=== PATIENT | female | born 1960 | race Caucasian/White ===

== ENCOUNTER → 2016-07-10 | Day surgery (SDC) | payer OTHER ==
[~2016-07-10] MED LIST: ALPRAZolam 0.25 MG TAB ONE
--- NOTE | 2016-07-10 14:45 | USB ---
Discontinued right breast biopsy history: Abnormal breast ultrasound Correlation of previous right breast ultrasound 13 December 2015, 17 May 2016 Real-time scanning, ultrasound images obtained from the 1:00, 3:00 as well as 10:00 positions of the right breast were performed. Fibrocystic changes are noted at all sites. No solid or cystic masses evident. IMPRESSION: No target for biopsy, no percutaneous core biopsy performed at this time. Benign breast u ltrasound, BI-RADS 2. Follow-up mammogram recommended back on schedule.
== END ==
LOC: RADUSWWP 11:54
PROVIDERS: ATTEND Surgery
DX: R92.8 Other abnormal and inconclusive findings on diagnostic imaging of breast (principal); Z53.8 Procedure and treatment not carried out for other reasons

== ENCOUNTER → 2016-08-22 | Outpatient (CLI) | payer OTHER ==
--- NOTE | 2016-08-22 21:56 | WWHP ---
DATE OF SERVICE: 08/22/2016 CHIEF COMPLAINT: Patient is here for her routine gynecologic exam. HPI: This is a 56-year-old G0 with an LMP of 2009. The patient states it has been about 15 years since her last pelvic exam. She states she has had some urinary leakage. She states that there are times when she cannot get to the bathroom quick enough following strong urinary urgency. She is otherwise without complaints. PAST MEDICAL HISTORY: Seizure disorder and chronic hypertension. Dr. Miranda has been her primary care physician but she states she will be changing since Dr. Miranda is leaving the area. MEDICATIONS: 1. Dilantin 100 mg t.i.d. 2. Atenolol 25 mg daily. ALLERGIES: No known drug allergies. PAST SURGICAL HISTORY: [place] teeth removed in the past, colonoscopy 2013. She did have thyroid biopsy, which was benign in the past. 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 SOCIAL HISTORY: She admits to smoking about 1 pack of cigarettes per day and has about 2 alcoholic drinks per day. She states she previously was a much heavier drinker in the past. She admits to using marijuana, but denies any other drug use. She is from her and has been for many years. She lives with a man that she calls her roommate but they are not sexually active. She is not sexually active and is not seeing anybody else at this time. She is considered disabled. FAMILY HISTORY: Father had lung cancer. Paternal cousin had breast cancer. Mother had heart disease. REVIEW OF SYSTEMS: Weight has been stable. She states for many years, she has been trying to gain weight. RESPIRATORY: She can get short of breath with exertion. She denies cardiac problems. GI: She states she does not have a very good appetite, denies any other GI problems. PHYSICAL EXAM: Blood pressure 123/81. Height 5 feet 6 inches. Weight 103 pounds. Temperature 97.6, pulse 112. This is a well-developed thin white female who is alert and oriented x3 in no acute distress. The patient seems to have some generalized muscle atrophy. HEENT is within normal limits. NECK: Supple with thyroid enlargement on the left side which is soft and about 2 times normal size on the left side only. She states this was biopsied in the past. CHEST AND LUNGS: Clear to auscultation. HEART: Mild tachycardia. Breasts are without mass or discharge. Axillary exam is negative for adenopathy. BACK: Negative for CVA tenderness. ABDOMEN: Soft, nontender, without palpable masses. PELVIC EXAM: External genitalia reveals mild atrophy without lesions. Cervix is deviated to the patient's right, in the vagina. Cervix and vagina without lesions. There is no unusual vaginal discharge. There is no evidence of prolapse. There is no cervical motion tenderness. The uterus seems very firm and irregular, approximately 10 week size. This is nontender and seems posterior in the pelvis. This feels like this may represent a multifibroid uterus with several fibroids measuring 4 to 5 cm each. There are no other pelvic masses noted. I cannot be sure if this is the uterus or ovaries or some other type of mass. Rectovaginal exam confirms that the pelvic mass that I am palpating is not stool within the rectum. There are no rectal masses. There is moderate amount of soft stool in the rectum and there was also some evidence of some rectal stool incontinence. Stool was negative for occult blood. EXTREMITIES: Nontender. IMPRESSION: 1. A 55-year-old menopausal female with a firm irregular pelvic mass. Differential diagnosis will include multifibroid uterus, ovarian neoplasm, stool higher in the gastrointestinal tract than the rectum or other nongynecologic pelvic mass. 2. Occasional urinary urge incontinence without any significant bladder findings at this time. 3. Left thyromegaly, which was apparently biopsied in the past and was benign according to the patient. 4. Mild tachycardia. PLAN: 1. Pap smear was performed. 2. Self-breast examination was discussed. 3. The patient will be due for a diagnostic bilateral mammogram in January 21 and an order slip was given to patient for this. 4. The patient will undergo a pelvic ultrasound today to further evaluate the pelvic mass. 5. I have stressed the importance of getting a primary care physician since she states she is in between primary care doctors. She understands that she has multiple conditions including the unilateral thyromegaly that should be watched and possibly further evaluated. 6. She will also return in one year and p.r.n.
== END ==
LOC: WWCWWP 10:33
PROVIDERS: ATTEND Obstetrics & Gynecology

== ENCOUNTER → 2016-09-14 | Outpatient (CLI) | payer OTHER ==
--- NOTE | 2016-09-14 14:48 | US ---
EXAMINATION TYPE: US pelvic complete DATE OF EXAM: 09/14/2016 1:56 PM COMPARISON: NONE CLINICAL HISTORY: R19.00 PELVIC MASS. TECHNIQUE: Transabdominal (TA) Date of LMP: Patient has been post menopausal for at least 7 years EXAM MEASUREMENTS: Uterus: 10.2 x 5.2 x 7.2 cm Endometrial Stripe: 1.3 cm Right Ovary: 1.9 x 1.2 x 1.5 cm Left Ovary: not visualized cm TECHNOLOGIST IMPRESSION: 1. Uterus: Multiple calcified shadowing fibroids largest 2 measuring 2.9 x 3.4 x 3.6cm, and 2.8 x 2.9 x 2.7cm 2. Endometrium: measures thick for post menopausal patient 3. Right Ovary: wnl 4. Left Ovary: not visualized 5. Bilateral Adnexa: extensive peristalsing bowel in left adnexa 6. Posterior cul-de-sac: wnl IMPRESSION: 1. Fibroid uterus. 2. Endometrial stripe is upper limits of normal in size.
== END | disposition home or self-care (01) ==
LOC: RADUSWWP 08-22 11:49
PROVIDERS: ATTEND Obstetrics & Gynecology
DX: D25.9 Leiomyoma of uterus, unspecified (principal)
CPT/HCPCS: 76856

== ENCOUNTER → 2017-02-19 | Outpatient (CLI) | payer OTHER ==
--- NOTE | 2017-02-20 09:15 | MM ---
Reason for exam: additional evaluation requested from prior study. Last mammogram was performed 1 year and 2 months ago. History: Patient is postmenopausal and is nulliparous. US discontinued breast bx RT of the right breast, July 10, 2016. Physical Findings: Nurse did not find any significant physical abnormalities on exam. MG Diagnostic Mammo w CAD CARMEN Bilateral CC and MLO view(s) were taken. Prior study comparison: December 13, 2015, bilateral MG 3d diag mammo w/cad CARMEN. December 02, 2014, mammogram, performed at [facility]. The breast tissue is heterogeneously dense. This may lower the sensitivity of mammography. Finding: There is a new heterogeneous, grouped of calcifications in the upper quadrant, central position of the right breast for which a tissue biopsy is recommended. New finding since December 13, 2015 and December 02, 2014. These results were verbally communicated with the patient and result sheet given to the patient on 02/19/17. ASSESSMENT: Suspicious, BI-RAD 4 RECOMMENDATION: Stereotactic core biopsy of the right breast. Called Dr. Beaver with mammographic findings and has scheduled an appointment for the patient for 02/26/17 at 11:[address] Britton. PRELIMINARY REPORT CALLED AND FAXED TO DR. BRITTON ON 02/20/17 /TP.
== END | disposition home or self-care (01) ==
LOC: RADMAMWWP 09-14 13:15
PROVIDERS: ATTEND Obstetrics & Gynecology
DX: R92.8 Other abnormal and inconclusive findings on diagnostic imaging of breast (principal)

== ENCOUNTER → 2017-05-15 | Outpatient (CLI) | payer OTHER ==
--- NOTE | 2017-05-15 13:34 | US ---
EXAMINATION TYPE: US pelvic complete DATE OF EXAM: 05/15/2017 COMPARISON: NONE CLINICAL HISTORY: D25.9,UTERINE LEIOMYOMA. Fibroid uterus TECHNIQUE: Transabdominal (TA) Date of LMP: 7-8 years ago EXAM MEASUREMENTS: Uterus: 10.7 x 6.0 x 7.6 cm Endometrial Stripe: 0.7 cm Right Ovary: unable to visualize Left Ovary: unable to visualize 1. Uterus: Anteverted multiple shadowing calcified fibroids with largest = 3.4 x 3.6 x 3.3cm 2. Endometrium: difficult to visualize due to heterogenicity of uterus 3. Right Ovary: unable to visualize 4. Left Ovary: unable to visualize 5. Bilateral Adnexa: wnl 6. Posterior cul-de-sac: wnl IMPRESSION: Redemonstration of a fibroid uterus with largest leiomyoma measuring 3.6 cm, unchanged fr om the prior. Endometrium is again difficult to visualize and measures approximately 7 mm.
== END | disposition home or self-care (01) ==
LOC: RADUSWWP 11:53
PROVIDERS: ATTEND Obstetrics & Gynecology
DX: D25.9 Leiomyoma of uterus, unspecified (principal)
CPT/HCPCS: 76856

== ENCOUNTER → 2017-05-25 | Outpatient (CLI) | payer OTHER ==
[2017-05-25 11:17] LABS: Blood Urea Nitrogen 8 mg/dL (7-17); Non-African American GFR(MDRD) >60 (>60 ml/min/1.73 sqM)
--- NOTE | 2017-05-25 12:43 | MR ---
EXAMINATION TYPE: MR brain wo/w con DATE OF EXAM: 05/25/2017 COMPARISON: NONE HISTORY: Seizures, memory difficulties, recent diagnosis breast ca TECHNIQUE: Multiplanar, multisequence images of the brain and brainstem is performed without and with IV contras t, utilizing 4.5 mL intravenous Gadavist . FINDINGS: Diffusion weighted images demonstrate no evidence of a recent infarct or other diffusion ab normality. There is no extra-axial fluid collection. Few punctate T2/FLAIR hyperintense foci are see n within the subcortical and periventricular white matter preferentially within the frontal lobes. Me sial temporal lobes are symmetric and unremarkable. The ventricular system and cisternal spaces are n ormal in size and appearance. The brain volume is age appropriate. Midline structures demonstrate normal morphology. The craniocervical junction appears within normal limits. Post contrast images demonstrate no abnormal enhancement. The dural venous sinuses appear pa tent. Scant mucosal thickening is present within the ethmoid air cells. The remaining visualized sinu ses are clear and the globes are intact. IMPRESSION: 1. No evidence of intracranial metastasis or acute CVA. 2. Mild burden periventricular and subcortical nonspecific white matter, likely on the basis of chron ic microangiopathy.
== END | disposition home or self-care (01) ==
LOC: RADMRIMAIN 10:40
PROVIDERS: ATTEND Nurse Practitioner Acute Care
DX: R90.89 Other abnormal findings on diagnostic imaging of central nervous system (principal); R41.3 Other amnesia; G40.909 Epilepsy, unspecified, not intractable, without status epilepticus
CPT/HCPCS: 82565; 84520; 70553; 36415; A9581

== ENCOUNTER 2020-12-22 10:40 | Inpatient (IN) | payer OTHER ==
[2020-12-22] MEDS ORDERED: SODIUM CHLORIDE 0.9% 500 ML 500 ML IV STA ×2 (11:18→12:40)
[2020-12-22] MEDS ORDERED: ONDANSETRON 4 MG/2 ML VIAL IVP STA (11:18)
--- NOTE | 2020-12-22 11:41 | ED ---
Weakness HPI <BarryDao - Last Filed: 12/22/20 15:20> - General Source: EMS Mode of arrival: EMS Limitations: no limitations <Keena Joaquin - Last Filed: 12/22/20 22:07> - General Chief complaint: Weakness Stated complaint: Weakness Time Seen by Provider: 12/22/20 11:08 - History of Present Illness Initial comments: Patient is a 60-year-old female with history of end-stage renal disease, liver disease, presenting to the emergency department via EMS with complaints of generalized weakness, chronic abdominal pain and inability to care for herself at home. Patient is a poor historian and is not providing a lot of information. I do have paperwork from a recent hospital stay at [facility], where she was discharged on 12/07/2020, and recommended hospice however patient is refusing hospice care. She has a dialysis catheter in the left femoral, unaware of the last time she had dialysis. She denies any chest pain or shortness of breath, she has not been eating. She is complaining of abdominal pain but states she's had this for months. Patient seems to be severely ma lnutrious, weak. She does complain of some nausea, no vomiting. There is nothing further at this time, no family to help with history. Tachycardia upon arrival, 116, rest of vitals stable. (Keena Joaquin) - Related Data Home Medications Medication Instructions Recorded Confirmed Anastrozole 1 mg PO DAILY 12/22/20 12/22/20 Ascorbic Acid [Vitamin C with Diana 1,000 mg PO DAILY 12/22/20 12/22/20 Hips] Aspirin 325 mg PO DAILY 12/22/20 12/22/20 Cholecalciferol [Vitamin D3 (25 25 mcg PO DAILY 12/22/20 12/22/20 Mcg = 1000 Iu)] Cyanocobalamin (Vitamin B-12) 1,000 mcg PO DAILY 12/22/20 12/22/20 [Vitamin B-12] Folic Acid 1 mg PO DAILY 12/22/20 12/22/20 HYDROcodone/APAP 7.5-325MG [[place] 1 tab PO TID 12/22/20 12/22/20 7.5-325] Loperamide HCl [Loperamide] 2 mg PO QID 12/22/20 12/22/20 Magnesium Gluconate [Magonate] 500 mg PO DAILY 12/22/20 12/22/20 Midodrine HCl [ProAmatine] 10 mg PO TID 12/22/20 12/22/20 Pantoprazole [Protonix] 40 mg PO DAILY 12/22/20 12/22/20 Potassium Chloride 10 meq PO BID 12/22/20 12/22/20 Allergies Allergy/AdvReac Type Severity Reaction Status Date / Time iodine Allergy Rash/Hives Verified 12/22/20 13:18 Iodine and Iodide Containing Allergy Rash/Hives Verified 12/22/20 13:18 Produc lactose Allergy Diarrhea. Verified 12/22/20 13:18 ABD PAIN. metal Allergy Rash/Hives Uncoded 12/22/20 13:18 Review of Systems ROS Other: All systems not noted in ROS Statement are negative. <Dao Reddy - Last Filed: 12/22/20 15:20> ROS Other: All systems not noted in ROS Statement are negative. <Keena Joaquin - Last Filed: 12/22/20 22:07> ROS Statement: Those systems with pertinent positive or pertinent negative responses have been documented in the HPI. Past Medical History Past Medical History: Chest Pain / Angina, Hypertension, Seizure Disorder, Sleep Apnea/CPAP/BIPAP Additional Past Medical History / Comment(s): Rt breast itching since bx,rt breast CA, Uses CPAP, LAST SEIZURE IN 2014,varicose veins,hx colon polyp,pos h.pylori History of Any Multi-Drug Resistant Organisms: None Reported Past Surgical History: No Surgical Hx Reported Additional Past Surgical History / Comment(s): rt breast bx,ALL TEETH EXTRACTED,colonoscopy Past Anesthesia/Blood Transfusion Reactions: No Reported Reaction, Motion Sickness Additional Past Anesthesia/Blood Transfusion Reaction / Comment(s): NO General Anesthesia Past Psychological History: Anxiety Smoking Status: Current every day smoker Past Alcohol Use History: Occasional Past Drug Use History: None Reported <Keena Joaquin - Last Filed: 12/22/20 22:07> General Exam Limitations: no limitations <Keena Joaquin Last Filed: 12/22/20 22:07> - General Exam Comments Initial Comments: GENERAL: Patient is severely cachectic, jaundiced, weak appearing HEAD: Atraumatic, normocephalic. EYES: Pupils equal round and reactive to light, extraocular movements intact, sclera anicteric, conjunctiva are normal. Eyelids were unremarkable. ENT: TMs normal, nares patent, oropharynx clear without exudates. Moist mucous membranes. NECK: Normal range of motion, supple without lymphadenopathy or JVD. LUNGS: Unlabored respirations. Breath sounds clear to auscultation bilaterally and equal. No wheezes rales or rhonchi. HEART: Tachycardia rate and rhythm without murmurs, rubs or gallops. ABDOMEN: Abdomen is distended, painful, normoactive bowel sounds. : Deferred MUSCULOSKELETAL: Severe muscle wasting, bilateral ankles have pitting edema, neurovascular intact, decreased strength in all 4 extremities, range of motion seems to be within normal limits. No clubbing or cyanosis. NEUROLOGICAL: Patient is alert and oriented x 2-3, I feel patient just doesn't want to answer questions at times. Motor and sensory are also intact. Cranial nerves II through XII grossly intact. Symmetrical smile. Normal speech, unable to ambulate. PSYCH: Normal mood, normal affect. SKIN: Warm, Dry, normal turgor, no rashes. Patient is jaundiced in color, bruising noted to the left forearm, no pain in this location. Patient has left femoral dialysis catheter present, mild erythema, mild drainage. (Keena Joaquin) Course <Dao Reddy - Last Filed: 12/22/20 15:20> <Keena Joaquin - Last Filed: 12/22/20 22:07> Vital Signs 12/22/20 12/22/20 12/22/20 10:47 12:29 13:23 Temperature 97.6 F Pulse Rate 116 H 105 H 122 H Respiratory 18 18 16 Rate Blood Pressure 123/53 82/54 90/45 O2 Sat by Pulse 96 96 96 Oximetry 12/22/20 12/22/20 12/22/20 14:30 15:00 16:27 Temperature Pulse Rate 105 H 104 H 116 H Respiratory 16 16 16 Rate Blood Pressure 86/58 107/68 84/63 O2 Sat by Pulse 96 95 95 Oximetry - Reevaluation(s) Reevaluation #1: 12/22/20 15:20 Patient was evaluated patient is refusing further care with respect to dialysis or treatment patient will be no code 12/22/20 15:20 The patient does appear to have decision-making capacity (Dao Reddy) 12/22/[address] Santos about possible ICU placement however patient is refusing dialysis at this time. She will be changed to a no code. Patient will be admitted for hospice care. No ICU. (Keena Joaquin) EKG Findings - EKG Comments: EKG Findings:: Sinus tach, low voltage QRS, nonspecific T-wave abnormality, no signs of acute ischemic process. Ventricular rate 111, AZ interval 172, QT 344. <Keena Joaquin - Last Filed: 12/22/20 22:07> Medical Decision Making - Lab Data Result diagrams: 12/22/20 11:56 12/22/20 11:56 <Dao Reddy - Last Filed: 12/22/20 15:20> - Lab Data Result diagrams: 12/22/20 11:56 12/22/20 17:40 <Keena Joaquin - Last Filed: 12/22/20 22:07> - Medical Decision Making Patient is a 60-year-old female, with history of end-stage renal and liver disease, presenting via EMS with complaints of generalized weakness, unable to care for herself at home. She is a poor historian, recent admission to [facility] reveals she was discharged on 12/07/2020 with recommendation to hospice however she has been refusing. She did arrive tachycardia, rest of vital stable. Patient is severely cachectic, weak, complaining of abdominal pain and nausea. Labs showed leukocytosis of 20.4, hemoglobin is 7.6, potassium was high at 7.2, creatinine is 8.35, BUN is 132 with a glucose of 36. Lactic acid is elevated at 6.4. Troponin is negative, BNP is 88,000. I discussed case in detail with Dr. Reddy. Patient will be admitted for possible dialysis. I did discuss case with Dr. Tsai who accepts admission. We did start antibiotics, hyperkalemia protocol. I discussed case with Dr. Villalpando , who agreed to do dialysis. Then I discussed with patient the urgent need for dialysis however patient is adamantly refusing dialysis. I explained that she will without dialysis, patient states "I don't care, she understands." Patient will be DO NOT RESUSCITATE. She will be admitted with consult to hospice care. Case discussed in detail with Dr. Reddy. (Keena Joaquin) - Lab Data Lab Results 12/22/20 12/22/20 12/22/20 Range/Units 11:56 11:56 11:56 WBC 20.4 H (3.8-10.6) k/uL RBC 2.43 L (3.80-5.40) m/uL Hgb 7.6 L (11.4-16.0) gm/dL Hct 25.0 L (34.0-46.0) % MCV 102.7 H (80.0-100.0) fL MCH 31.4 (25.0-35.0) pg MCHC 30.6 L (31.0-37.0) g/dL RDW 15.6 H (11.5-15.5) % Plt Count 382 (150-450) k/uL MPV 12.4 Neutrophils % (Manual) 88 % Band Neuts % (Manual) 10 % Lymphocytes % (Manual) 1 % Monocytes % (Manual) 1 % Neutrophils # (Manual) 19.90 H (1.3-7.7) k/uL Lymphocytes # (Manual) 0.20 L (1.0-4.8) k/uL Monocytes # (Manual) 0.20 (0-1.0) k/uL Nucleated RBCs 0 (0-0) /100 WBC Manual Slide Review Performed Hypochromasia Marked Macrocytosis Slight Target Cells Present PT 12.7 H (9.0-12.0) sec INR 1.2 H (<1.2) APTT 26.0 (22.0-30.0) sec Sodium 143 (137-145) mmol/L Potassium 7.2 H* (3.5-5.1) mmol/L Chloride 110 H (98-107) mmol/L Carbon Dioxide 12 L (22-30) mmol/L Anion Gap 21 mmol/L BUN 132 H* (7-17) mg/dL Creatinine 8.35 H* (0.52-1.04) mg/dL Est GFR (CKD-EPI)AfAm 6 (>60 ml/min/1.73 sqM) Est GFR (CKD-EPI)NonAf 5 (>60 ml/min/1.73 sqM) Glucose 36 L* (74-99) mg/dL Lactic Ac Sepsis Rflx Plasma Lactic Acid Nitesh (0.7-2.0) mmol/L Calcium 10.0 (8.4-10.2) mg/dL Magnesium 2.1 (1.6-2.3) mg/dL Total Bilirubin 0.6 (0.2-1.3) mg/dL AST 28 (14-36) U/L ALT 20 (4-34) U/L Alkaline Phosphatase 233 H (38-126) U/L Creatine Kinase 58 (30-135) U/L Troponin I (0.000-0.034) ng/mL NT-Pro-B Natriuret Pep pg/mL Total Protein 5.7 L (6.3-8.2) g/dL Albumin 2.6 L (3.5-5.0) g/dL 12/22/20 12/22/20 12/22/20 Range/Units 11:56 11:56 11:56 WBC (3.8-10.6) k/uL RBC (3.80-5.40) m/uL Hgb (11.4-16.0) gm/dL Hct (34.0-46.0) % MCV (80.0-100.0) fL MCH (25.0-35.0) pg MCHC (31.0-37.0) g/dL RDW (11.5-15.5) % Plt Count (150-450) k/uL MPV Neutrophils % (Manual) % Band Neuts % (Manual) % Lymphocytes % (Manual) % Monocytes % (Manual) % Neutrophils # (Manual) (1.3-7.7) k/uL Lymphocytes # (Manual) (1.0-4.8) k/uL Monocytes # (Manual) (0-1.0) k/uL Nucleated RBCs (0-0) /100 WBC Manual Slide Review Hypochromasia Macrocytosis Target Cells PT (9.0-12.0) sec INR (<1.2) APTT (22.0-30.0) sec Sodium (137-145) mmol/L Potassium (3.5-5.1) mmol/L Chloride (98-107) mmol/L Carbon Dioxide (22-30) mmol/L Anion Gap mmol/L BUN (7-17) mg/dL Creatinine (0.52-1.04) mg/dL Est GFR (CKD-EPI)AfAm (>60 ml/min/1.73 sqM) Est GFR (CKD-EPI)NonAf (>60 ml/min/1.73 sqM) Glucose (74-99) mg/dL Lactic Ac Sepsis Rflx Plasma Lactic Acid Nitesh 6.4 H* (0.7-2.0) mmol/L Calcium (8.4-10.2) mg/dL Magnesium (1.6-2.3) mg/dL Total Bilirubin (0.2-1.3) mg/dL AST (14-36) U/L ALT (4-34) U/L Alkaline Phosphatase (38-126) U/L Creatine Kinase (30-135) U/L Troponin I <0.012 (0.000-0.034) ng/mL NT-Pro-B Natriuret Pep 69986 pg/mL Total Protein (6.3-8.2) g/dL Albumin (3.5-5.0) g/dL 12/22/20 Range/Units 12:28 WBC (3.8-10.6) k/uL RBC (3.80-5.40) m/uL Hgb (11.4-16.0) gm/dL Hct (34.0-46.0) % MCV (80.0-100.0) fL MCH (25.0-35.0) pg MCHC (31.0-37.0) g/dL RDW (11.5-15.5) % Plt Count (150-450) k/uL MPV Neutrophils % (Manual) % Band Neuts % (Manual) % Lymphocytes % (Manual) % Monocytes % (Manual) % Neutrophils # (Manual) (1.3-7.7) k/uL Lymphocytes # (Manual) (1.0-4.8) k/uL Monocytes # (Manual) (0-1.0) k/uL Nucleated RBCs (0-0) /100 WBC Manual Slide Review Hypochromasia Macrocytosis Target Cells PT (9.0-12.0) sec INR (<1.2) APTT (22.0-30.0) sec Sodium (137-145) mmol/L Potassium (3.5-5.1) mmol/L Chloride (98-107) mmol/L Carbon Dioxide (22-30) mmol/L Anion Gap mmol/L BUN (7-17) mg/dL Creatinine (0.52-1.04) mg/dL Est GFR (CKD-EPI)AfAm (>60 ml/min/1.73 sqM) Est GFR (CKD-EPI)NonAf (>60 ml/min/1.73 sqM) Glucose (74-99) mg/dL Lactic Ac Sepsis Rflx Y Plasma Lactic Acid Nitesh (0.7-2.0) mmol/L Calcium (8.4-10.2) mg/dL Magnesium (1.6-2.3) mg/dL Total Bilirubin (0.2-1.3) mg/dL AST (14-36) U/L ALT (4-34) U/L Alkaline Phosphatase (38-126) U/L Creatine Kinase (30-135) U/L Troponin I (0.000-0.034) ng/mL NT-Pro-B Natriuret Pep pg/mL Total Protein (6.3-8.2) g/dL Albumin (3.5-5.0) g/dL Critical Care Time Critical Care Time: Yes Total Critical Care Time: 37 (Patient with acute renal failure, hyperkalemia, hypotensive, patient refusing dialysis, will be admitted for hospice care) <Keena Joaquin - Last Filed: 12/22/20 22:07> Disposition <Dao Reddy - Last Filed: 12/22/20 15:20> Decision Date: 12/22/20 Decision Time: 13:24 <Keena Joaquin - Last Filed: 12/22/20 22:07> Clinical Impression: Renal failure, Hyperkalemia, Lactic acidosis, Malnutrition, Hypoglycemia Disposition: ADMITTED IP TO THIS [facility] Condition: Poor
[2020-12-22 12:24] LABS: INR 1.2 (<1.2); Prothrombin Time 12.7 sec (9.0-12.0)
--- NOTE | 2020-12-22 12:24 | CT ---
EXAMINATION TYPE: CT abdomen pelvis wo con DATE OF EXAM: 12/22/2020 COMPARISON: None HISTORY: Ascites, weakness, abdominal pain CT DLP: 352.1 mGycm Automated exposure control for dose reduction was used. TECHNIQUE: Helical acquisition of images from the lung bases through the pelvis. FINDINGS: Left femoral central venous catheter is present, tip is near the confluence of the common i liac veins LUNG BASES: No significant abnormality is appreciated. AORTA: Dense atherosclerotic calcification present in the aortoiliac distribution. Coronary artery c alcifications noted LIVER/GB: No significant abnormality is appreciated. PANCREAS: No significant abnormality is seen. SPLEEN: No significant abnormality is seen. ADRENALS: No significant abnormality is seen. KIDNEYS: No significant abnormality is seen. REPRODUCTIVE ORGANS: Multiple calcified masses are present within the pelvis, lobular soft tissue is present. Left ovarian mass is suspected with a cystic component, solid component overall measuring 4 cm in AP dimension by 2.2 cm transverse dimension by 3 cm in cephalad to caudal dimension URINARY BLADDER: No significant abnormality is seen. BOWEL: Diverticular changes associated with the sigmoid colon. Fluid-filled loops of small bowel not ed, bowel wall thickening may be related to hypoproteinemia, ascites FREE AIR: No Free Air is visible. ASCITES: Large amount of ascites. PELVIC ADENOPATHY: None visualized. RETROPERITONEAL ADENOPATHY: No Retroperitoneal Adenopathy visible. OSSEOUS STRUCTURES: No significant abnormality is seen. IMPRESSION: LARGE AMOUNT OF ASCITES. INDETERMINATE PELVIC MASSES WITH ASSOCIATED CALCIFICATION MAY BE RELATED TO OVARIAN FIBROIDS, LEFT OVARIAN CYSTIC MASS IS NOTED
[2020-12-22 12:26] LABS: Albumin 2.6 g/dL (3.5-5.0); Magnesium 2.1 mg/dL (1.6-2.3); Total Bilirubin 0.6 mg/dL (0.2-1.3); Total Protein 5.7 g/dL (6.3-8.2)
[2020-12-22 12:31] LABS: HGB 7.6 gm/dL (11.4-16.0); Hypochromasia Marked; MCH 31.4 pg (25.0-35.0); MCHC 30.6 g/dL (31.0-37.0); MCV 102.7 fL (80.0-100.0); Macrocytosis Slight; Mean Platelet Volume 12.4; Platelet Count 382 k/uL (150-450); RBC 2.43 m/uL (3.80-5.40); RDW 15.6 % (11.5-15.5); WBC 20.4 k/uL (3.8-10.6)
[2020-12-22 12:40] LABS: Potassium 7.2 mmol/L (3.5-5.1)
[2020-12-22] MEDS ORDERED: DEXTROSE 50% SYRINGE 50 ML IVP STA ×2 (12:43→19:00)
[2020-12-22] MEDS ORDERED: MIDODRINE 5 MG TAB PO STA (13:14)
[2020-12-22 13:15] LABS: Glucose,Whole Blood 129 mg/dL (75-99)
--- NOTE | 2020-12-22 13:17 | XR ---
EXAMINATION TYPE: XR chest 2V DATE OF EXAM: 12/22/2020 COMPARISON: NONE TECHNIQUE: PA and lateral views submitted. HISTORY: Weakness FINDINGS: The lungs are clear and there is no pneumothorax, pleural effusion, or focal pneumonia. Hyperinflat ion suggestive of COPD. Surgical clips overlying the right chest. Vascular calcifications noted. No o vert failure. Heart size normal. Degenerative change of the spine. Correlate for COPD. IMPRESSION: 1. No acute process.
[2020-12-22] MEDS ORDERED: NALOXONE 0.4 MG/ML 1 ML VIAL IV PRN (13:19)
[2020-12-22 13:33] LABS: Band Neutrophils % 10 %; Neutrophils % (M) 88 %; Nucleated Red Blood Cells 0 /100 WBC (0-0); Target Cells Present; Total Cells Counted 100
[2020-12-22] MEDS: SODIUM CHLORIDE 0.9% 1,000 ML IV SCH ×2 (14:07→23:46)
[2020-12-22] MEDS ORDERED: SODIUM BICARB 8.4% 50 ML SYR (1 MEQ/ML) IV ONE (15:17)
[2020-12-22] MEDS ORDERED: ALBUTEROL NEB (CONC) 2.5 MG/0.5 ML INHALATION ONE (15:17)
[2020-12-22] MEDS ORDERED: DEXTROSE 50% SYRINGE 50 ML IVP ONE (15:17)
[2020-12-22] MEDS ORDERED: SODIUM POLYSTYRENE SULFONATE 15 GM/60 ML BOTTLE PO ONE (15:17)
[2020-12-22] MEDS ORDERED: INSULIN REGULAR 100 UNIT/ML VIAL (IV) IV ONE (15:17)
[2020-12-22] MEDS ORDERED: VANCOMYCIN IV PER PHARMACY 1 EACH MISC MISCELLANE PRN (15:18)
[2020-12-22] MEDS ORDERED: CALCIUM GLUCONATE 1 GM in SODIUM CHLORIDE 0.9% 100 ML IVPB ONE (15:45)
[2020-12-22] MEDS ORDERED: VANCOMYCIN 1,000 MG in SODIUM CHLORIDE 0.9% 250 ML IVPB ONE (15:45)
[2020-12-22 16:30] LABS: Glucose,Whole Blood 128 mg/dL (75-99)
--- NOTE | 2020-12-22 17:56 | P.HPIM ---
History of Present Illness H&P Date: 12/22/20 Chief Complaint: Weakness This is a 60-year-old pleasant lady, with multiple significant comorbidities including end-stage renal and liver disease, requiring hemodialysis, ascites with cirrhosis abdominal pain, shortness of breath, cachectic shock, failure to thrive, anorexia, significant weight loss, was last admitted at [facility], approximately 2 weeks ago, and was supposed to be on hospice. She refused hospice care, has difficulty of caring for herself, she was hypotensive when seen in the emergency room, she also has a left dialysis catheter femoral area for which she wants it removed. She thinks that this might giving her problems, when inspected, there is some redness surrounding the area, there is no surgical dressing in place, and there is some yellowish green discharge from the circumference of the catheter area. She was tachycardic on admission, and hypotensive, systolic in the 80s, Emergency room, potassium was 7.2, creatinine was 8.35, alkaline phosphatase 233, WBC count 20.4, lactic acid is elevated, coronavirus PCR negative. Patient was evaluated by myself also after admission to the emergency room, and discussed the hospice option, eyes she does have critical hyperkalemia, with significant hypotension. We've started her on ranitidine, and given her some fluid boluses, there is also ascites noted on examination. X-rays shows no acute disease, has COPD changes, no overt failure EKG, sinus tachycardia 111, nonspecific ST-T wave changes, no peak T waves I discussed this with Dr. mc for the left femoral catheter, for the dialysis, consult with Dr. Rodrigez, patient will be started on cefepime renal dose, vancomycin, consult with Dr. Mc, however his flying to [place] in the morning. He recommends getting Dr. Moore involved first, prior to discontinuing this catheter, for access to dialysis for the critical hyperkalemia blood cultures done, Review of Systems Constitutional: Reports as per HPI, Reports anorexia, Reports fatigue, Reports malaise, Reports poor appetite, Reports weakness, Reports weight loss Ears, nose, mouth and throat: Reports as per HPI, Denies ant. neck pain, Denies bleeding gums, Denies dental pain, Denies dysphagia, Denies epistaxis, Denies headache, Denies hoarseness, Denies mouth pain, Denies nasal congestion, Denies nasal discharge, Denies neck fullness/pressure, Denies neck lump, Denies nose pain, Denies odynophagia, Denies post-nasal drip, Denies sinus pain, Denies sinus pressure, Denies swelling in mouth, Denies swelling in throat, Denies sore throat, Denies vertigo, Denies voice changes Cardiovascular: Reports as per HPI, Reports decreased exercise tolerance, Reports dyspnea on exertion, Reports edema, Reports leg edema, Reports lightheadedness, Reports orthopnea, Reports shortness of breath, Denies chest pain, Denies claudication, Denies irregular heart beat, Denies palpitations, Denies syncope Respiratory: Reports as per HPI, Reports dyspnea, Denies congestion, Denies cough, Denies cough with sputum, Denies excessive sputum, Denies hemoptysis, D enies home oxygen, Denies pain, Denies pain on inspiration, Denies pleurisy, Denies respiratory infections, Denies sleep apnea, Denies snoring, Denies wheezing Gastrointestinal: Reports as per HPI, Reports abdominal pain, Reports early satiety, Reports indigestion, Reports loss of appetite Genitourinary: Reports as per HPI Menstruation: Reports as per HPI Musculoskeletal: Reports as per HPI, Denies arm numbness/tingling, Denies atrophy, Denies fractures, Denies frequent falls, Denies gait dysfunction, Denies hot joints, Denies leg numbness/tingling, Denies limitation of motion, Denies loss of height, Denies low back pain, Denies morning stiffness, Denies muscle cramps, Denies muscle weakness, Denies myalgias, Denies neck pain, Denies neck stiffness, Denies prior amputations, Denies redness of joints, Denies shooting arm pain, Denies shooting leg pain Integumentary: Reports as per HPI Neurological: Reports as per HPI, Reports confusion, Reports gait dysfunction, Reports memory loss, Reports weakness Psychiatric: Reports as per HPI Endocrine: Reports as per HPI, Denies cold intolerance, Denies deepening of the voice, Denies excessive sweating, Denies excessive thirst, Denies fatigue, Denies flushing, Denies heat intolerance, Denies high blood sugars, Denies increase in ring/shoe/hat size, Denies low blood sugars, Denies nocturia, Denies palpitations, Denies polydipsia, Denies polyphagia, Denies polyuria, Denies proptosis, Denies recent glucocorticoid use, Denies thyroid mass, Denies weight change Hematologic/Lymphatic: Reports as per HPI Allergic/Immunologic: Reports as per HPI, Denies allergic rhinitis, Denies anaphylaxis, Denies angioedema, Denies gluten intolerance, Denies persistent infections, Denies seasonal allergies, Denies urticaria, Denies wheezing Past Medical History Past Medical History: Chest Pain / Angina, Hypertension, Seizure Disorder, Sleep Apnea/CPAP/BIPAP Additional Past Medical History / Comment(s): Rt breast itching since bx,rt lala ast [place], Uses CPAP, LAST SEIZURE IN 2014,varicose veins,hx colon polyp,pos h.pylori History of Any Multi-Drug Resistant Organisms: None Reported Past Surgical History: No Surgical Hx Reported Additional Past Surgical History / Comment(s): rt breast bx,ALL TEETH EXTRACTED,colonoscopy Past Anesthesia/Blood Transfusion Reactions: No Reported Reaction, Motion Sickness Additional Past Anesthesia/Blood Transfusion Reaction / Comment(s): NO General Anesthesia Past Psychological History: Anxiety Smoking Status: Current every day smoker Past Alcohol Use History: Occasional Past Drug Use History: None Reported Medications and Allergies Home Medications Medication Instructions Recorded Confirmed Type Anastrozole 1 mg PO DAILY 12/22/20 12/22/20 History Ascorbic Acid [Vitamin C with Diana 1,000 mg PO DAILY 12/22/20 12/22/20 History Hips] Aspirin 325 mg PO DAILY 12/22/20 12/22/20 History Cholecalciferol [Vitamin D3 (25 25 mcg PO DAILY 12/22/20 12/22/20 History Mcg = 1000 Iu)] Cyanocobalamin (Vitamin B-12) 1,000 mcg PO DAILY 12/22/20 12/22/20 History [Vitamin B-12] Folic Acid 1 mg PO DAILY 12/22/20 12/22/20 History HYDROcodone/APAP 7.5-325MG [Agency 1 tab PO TID 12/22/20 12/22/20 History 7.5-325] Loperamide HCl [Loperamide] 2 mg PO QID 12/22/20 12/22/20 History Magnesium Gluconate [Magonate] 500 mg PO DAILY 12/22/20 12/22/20 History Midodrine HCl [ProAmatine] 10 mg PO TID 12/22/20 12/22/20 History Pantoprazole [Protonix] 40 mg PO DAILY 12/22/20 12/22/20 History Potassium Chloride 10 meq PO BID 12/22/20 12/22/20 History Allergies Allergy/AdvReac Type Severity Reaction Status Date / Time iodine Allergy Rash/Hives Verified 12/22/20 13:18 Iodine and Iodide Containing Allergy Rash/Hives Verified 12/22/20 13:18 Produc lactose Allergy Diarrhea. Verified 12/22/20 13:18 ABD PAIN. metal Allergy Rash/Hives Uncoded 12/22/20 13:18 Physical Exam Vitals: Vital Signs Temp Pulse Resp BP Pulse Ox 12/22/20 16:27 116 H 16 84/63 95 12/22/20 15:00 104 H 16 107/68 95 12/22/20 14:30 105 H 16 86/58 96 12/22/20 13:23 122 H 16 90/45 96 12/22/20 12:29 105 H 18 82/54 96 12/22/20 10:47 97.6 F 116 H 18 123/53 96 Intake and Output 12/22/20 12/22/20 12/22/20 06:59 14:59 22:59 Other: Weight 41.73 kg - Constitutional General appearance: cooperative - EENT Eyes: anicteric sclerae, EOMI, PERRLA ENT: NA/AT, normal oropharynx - Neck Neck: normal ROM - Respiratory Respiratory: bilateral: CTA, negative: diminished - Cardiovascular Rhythm: regular Heart sounds: normal: S1, S2 Abnormal Heart Sounds: no systolic murmur, no diastolic murmur, no rub, no S3 Gallop, no S4 Gallop, no click, no other - Gastrointestinal General gastrointestinal: distended, soft - Integumentary Integumentary: calor, decreased turgor, pale - Neurologic Neurologic: CNII-XII intact - Musculoskeletal Musculoskeletal: generalized weakness, strength equal bilaterally - Psychiatric Psychiatric: A&O x's 3, appropriate affect, intact judgment & insight Results CBC & Chem 7: 12/22/20 11:56 12/22/20 11:56 Labs: Abnormal Lab Results - Last 24 Hours (Table) 12/22/20 12/22/20 12/22/20 Range/Units 11:56 11:56 11:56 WBC 20.4 H (3.8-10.6) k/uL RBC 2.43 L (3.80-5.40) m/uL Hgb 7.6 L (11.4-16.0) gm/dL Hct 25.0 L (34.0-46.0) % MCV 102.7 H (80.0-100.0) fL MCHC 30.6 L (31.0-37.0) g/dL RDW 15.6 H (11.5-15.5) % Neutrophils # (Manual) 19.90 H (1.3-7.7) k/uL Lymphocytes # (Manual) 0.20 L (1.0-4.8) k/uL PT 12.7 H (9.0-12.0) sec INR 1.2 H (<1.2) Potassium 7.2 H* (3.5-5.1) mmol/L Chloride 110 H (98-107) mmol/L Carbon Dioxide 12 L (22-30) mmol/L BUN 132 H* (7-17) mg/dL Creatinine 8.35 H* (0.52-1.04) mg/dL Glucose 36 L* (74-99) mg/dL POC Glucose (mg/dL) (75-99) mg/dL Plasma Lactic Acid Nitesh (0.7-2.0) mmol/L Alkaline Phosphatase 233 H (38-126) U/L Total Protein 5.7 L (6.3-8.2) g/dL Albumin 2.6 L (3.5-5.0) g/dL 12/22/20 12/22/20 12/22/20 Range/Units 11:56 13:13 14:48 WBC (3.8-10.6) k/uL RBC (3.80-5.40) m/uL Hgb (11.4-16.0) gm/dL Hct (34.0-46.0) % MCV (80.0-100.0) fL MCHC (31.0-37.0) g/dL RDW (11.5-15.5) % Neutrophils # (Manual) (1.3-7.7) k/uL Lymphocytes # (Manual) (1.0-4.8) k/uL PT (9.0-12.0) sec INR (<1.2) Potassium (3.5-5.1) mmol/L Chloride (98-107) mmol/L Carbon Dioxide (22-30) mmol/L BUN (7-17) mg/dL Creatinine (0.52-1.04) mg/dL Glucose (74-99) mg/dL POC Glucose (mg/dL) 129 H (75-99) mg/dL Plasma Lactic Acid Nitesh 6.4 H* 6.8 H* (0.7-2.0) mmol/L Alkaline Phosphatase (38-126) U/L Total Protein (6.3-8.2) g/dL Albumin (3.5-5.0) g/dL 12/22/20 Range/Units 16:29 WBC (3.8-10.6) k/uL RBC (3.80-5.40) m/uL Hgb (11.4-16.0) gm/dL Hct (34.0-46.0) % MCV (80.0-100.0) fL MCHC (31.0-37.0) g/dL RDW (11.5-15.5) % Neutrophils # (Manual) (1.3-7.7) k/uL Lymphocytes # (Manual) (1.0-4.8) k/uL PT (9.0-12.0) sec INR (<1.2) Potassium (3.5-5.1) mmol/L Chloride (98-107) mmol/L Carbon Dioxide (22-30) mmol/L BUN (7-17) mg/dL Creatinine (0.52-1.04) mg/dL Glucose (74-99) mg/dL POC Glucose (mg/dL) 128 H (75-99) mg/dL Plasma Lactic Acid Nitesh (0.7-2.0) mmol/L Alkaline Phosphatase (38-126) U/L Total Protein (6.3-8.2) g/dL Albumin (3.5-5.0) g/dL Laboratory Results WBC 20.4 k/uL (3.8-10.6) H 12/22/20 11:56 RBC 2.43 m/uL (3.80-5.40) L 12/22/20 11:56 Hgb 7.6 gm/dL (11.4-16.0) L 12/22/20 11:56 Hct 25.0 % (34.0-46.0) L 12/22/20 11:56 MCV 102.7 fL (80.0-100.0) H 12/22/20 11:56 MCH 31.4 pg (25.0-35.0) 12/22/20 11:56 MCHC 30.6 g/dL (31.0-37.0) L 12/22/20 11:56 RDW 15.6 % (11.5-15.5) H 12/22/20 11:56 Plt Count 382 k/uL (150-450) 12/22/20 11:56 MPV 12.4 12/22/20 11:56 Neutrophils % (Manual) 88 % 12/22/20 11:56 Band Neuts % (Manual) 10 % 12/22/20 11:56 Lymphocytes % (Manual) 1 % 12/22/20 11:56 Monocytes % (Manual) 1 % 12/22/20 11:56 Neutrophils # (Manual) 19.90 k/uL (1.3-7.7) H 12/22/20 11:56 Lymphocytes # (Manual) 0.20 k/uL (1.0-4.8) L 12/22/20 11:56 Monocytes # (Manual) 0.20 k/uL (0-1.0) 12/22/20 11:56 Nucleated RBCs 0 /100 WBC (0-0) 12/22/20 11:56 Manual Slide Review Performed 12/22/20 11:56 Hypochromasia Marked 12/22/20 11:56 Macrocytosis Slight 12/22/20 11:56 Target Cells Present 12/22/20 11:56 PT 12.7 sec (9.0-12.0) H 12/22/20 11:56 INR 1.2 (<1.2) H 12/22/20 11:56 APTT 26.0 sec (22.0-30.0) 12/22/20 11:56 Sodium 143 mmol/L (137-145) 12/22/20 11:56 Potassium 7.2 mmol/L (3.5-5.1) H* 12/22/20 11:56 Chloride 110 mmol/L (98-107) H 12/22/20 11:56 Carbon Dioxide 12 mmol/L (22-30) L 12/22/20 11:56 Anion Gap 21 mmol/L 12/22/20 11:56 BUN 132 mg/dL (7-17) H* 12/22/20 11:56 Creatinine 8.35 mg/dL (0.52-1.04) H* 12/22/20 11:56 Est GFR (CKD-EPI)AfAm 6 (>60 ml/min/1.73 sqM) 12/22/20 11:56 Est GFR (CKD-EPI)NonAf 5 (>60 ml/min/1.73 sqM) 12/22/20 11:56 Glucose 36 mg/dL (74-99) L* 12/22/20 11:56 POC Glucose (mg/dL) 128 mg/dL (75-99) H 12/22/20 16:29 POC Glu Nuclear Equipment Operator ID Marta Harrison 12/22/20 16:29 Lactic Ac Sepsis Rflx Y 12/22/20 15:13 Plasma Lactic Acid Nitesh 6.8 mmol/L (0.7-2.0) H* 12/22/20 14:48 Calcium 10.0 mg/dL (8.4-10.2) 12/22/20 11:56 Magnesium 2.1 mg/dL (1.6-2.3) 12/22/20 11:56 Total Bilirubin 0.6 mg/dL (0.2-1.3) 12/22/20 11:56 AST 28 U/L (14-36) 12/22/20 11:56 ALT 20 U/L (4-34) 12/22/20 11:56 Alkaline Phosphatase 233 U/L (38-126) H 12/22/20 11:56 Creatine Kinase 58 U/L (30-135) 12/22/20 11:56 Troponin I <0.012 ng/mL (0.000-0.034) 12/22/20 11:56 NT-Pro-B Natriuret Pep 82631 pg/mL 12/22/20 11:56 Total Protein 5.7 g/dL (6.3-8.2) L 12/22/20 11:56 Albumin 2.6 g/dL (3.5-5.0) L 12/22/20 11:56 Coronavirus (PCR) Not Detected (Not Detectd) 12/22/20 13:06 Thrombosis Risk Factor Assmnt - DVT/VTE Prophylaxis DVT/VTE Prophylaxis: Pharmacologic Prophylaxis ordered Assessment and Plan Plan: 1. Severe Critical illness related to end-stage renal disease, with hyperkalemia, hypotension, cachexia, severe malnutrition, end-stage liver disease, who is the best perfect candidate for hospice, however patient disposi tion this option, patient comes in with hypotension, hyperkalemia, and purulent drainage from the left femoral dialysis catheter, patient is started on cefepime, 1 g every 12 hours renal dose, vancomycin, 1 g bolus with pharmacy to dose, consult with Dr. Moore, infectious disease, blood cultures 2. Severe malnutrition, protein calorie with severe hypo-glycemia glucose was 36 on entry, D5 was started, has anorexia, patient refuses any orexigenic agents, we will discuss this further 3. Suspected adrenal insufficiency, possible adrenal crisis, however there is no hyponatremia, and patient has hypernatremia, and no eosinophilia started on hydrocortisone 100 mg IV. Every 8 hours, ranitidine 4. Hypotension without abnormal dysfunction, start with a dream 10 mg 3 times a day, has underlying component of dehydration, and acute kidney failure, 5 Acute kidney failure, with CK D stage V, HEENT hemodialysis is not stable at this time and feasible at this time secondary to severe hypotension, Dr. Villalpando was consulted. 5 Hyperkalemia, Kayexalate provided, IV hydration 6 Sepsis with SIRS, multifactorial, cefepime, and vancomycin, blood cultures, consult infectious disease 7 Severe anemia, most likely iron deficiency, need to investigate whether the our onto the underlying GI losses, need Hemoccult stools, 8 Ascites, most likely secondary to liver disease, however there is an ovarian mass with cystic component, C1 25 are was ordered 9 Anasarca, with ascites, most likely secondary to protein malnutrition, as well as other factors of nutrition, and disease processes unable to diurese secondary to hypotension 10 Hospice declined by patient 11 CODE STATUS DO NOT RESUSCITATE 12 I prophylaxis DVT prophylaxis Prognosis severely guarded, life expectancy is very limited, to less than few months,
[2020-12-22 18:19] LABS: Glucose,Whole Blood 46 mg/dL (75-99)
[2020-12-22 18:42] LABS: Glucose,Whole Blood >600 mg/dL (75-99)
[2020-12-22 18:42] LABS: Glucose,Whole Blood 130 mg/dL (75-99)
[2020-12-22] MEDS ORDERED: DEXTROSE 5% IN WATER 1,000 ML IV SCH (19:00)
[2020-12-22] MEDS: HYDROCORTISONE SUCCINATE 100 MG/2 ML VIAL IV SCH ×2 (19:29→23:48)
[2020-12-22] MEDS: MORPHINE SULFATE 2 MG/ML SYRINGE IVP PRN ×2 (19:44→23:47)
[2020-12-22] MEDS ORDERED: CEFEPIME 1 GM in SODIUM CHLORIDE 0.9% 50 ML IVPB SCH (21:00)
[2020-12-23 00:29] LABS: Glucose,Whole Blood 402 mg/dL (75-99)
[2020-12-23] MEDS: MORPHINE SULFATE 2 MG/ML SYRINGE IVP PRN ×2 (03:49→15:21)
[2020-12-23 05:47] LABS: Glucose,Whole Blood 121 mg/dL (75-99)
[2020-12-23 06:49] LABS: HCT 22.3 % (34.0-46.0); Hypochromasia Marked; MCH 31.9 pg (25.0-35.0); MCHC 31.3 g/dL (31.0-37.0); MCV 101.9 fL (80.0-100.0); Macrocytosis Slight; Mean Platelet Volume 11.3; Platelet Count 288 k/uL (150-450); RBC 2.19 m/uL (3.80-5.40); RDW 15.6 % (11.5-15.5); WBC 26.7 k/uL (3.8-10.6)
[2020-12-23 07:01] LABS: ALT 16 U/L (4-34); AST 40 U/L (14-36); African American GFR (CKD) 6 (>60 ml/min/1.73 sqM); Albumin 2.3 g/dL (3.5-5.0); Albumin/Globulin Ratio 0.8; Alkaline Phosphatase 259 U/L (38-126); Anion Gap 17 mmol/L; Calcium 9.3 mg/dL (8.4-10.2); Carbon Dioxide 15 mmol/L (22-30); Chloride 111 mmol/L (98-107); Globulin 2.9 g/dL; Glucose 89 mg/dL (74-99); Non-African American GFR(CKD) 5 (>60 ml/min/1.73 sqM); Sodium 143 mmol/L (137-145); Total Bilirubin 0.8 mg/dL (0.2-1.3); Total Protein 5.2 g/dL (6.3-8.2)
[2020-12-23 07:15] LABS: Potassium 7.1 mmol/L (3.5-5.1)
[2020-12-23 07:18] LABS: Blood Urea Nitrogen 132 mg/dL (7-17)
[2020-12-23] MEDS ORDERED: INSULIN REGULAR 100 UNIT/ML VIAL (IV) IV ONE (08:43)
[2020-12-23] MEDS ORDERED: SODIUM BICARB 8.4% 50 ML SYR (1 MEQ/ML) IV STA (08:44)
[2020-12-23] MEDS ORDERED: CALCIUM GLUCONATE 1 GM in SODIUM CHLORIDE 0.9% 100 ML IVPB ONE (08:44)
[2020-12-23] MEDS ORDERED: DEXTROSE 50% SYRINGE 50 ML IVP STA (08:45)
[2020-12-23] MEDS ORDERED: VANCOMYCIN 1,000 MG in SODIUM CHLORIDE 0.9% 250 ML IVPB ONE (09:00)
[2020-12-23] MEDS: HYDROCORTISONE SUCCINATE 100 MG/2 ML VIAL IV SCH ×2 (09:26→16:19)
[2020-12-23] MEDS: MIDODRINE 5 MG TAB PO SCH ×3 (09:59→16:20)
--- NOTE | 2020-12-23 11:26 | P.GSCN ---
History of Present Illness Consult date: 12/23/20 Reason for Consult: removal of temporary dialysis catheter Requesting physician: Corazon Villalpando History of present illness: This is a 52-year-old white female with multiple medical comorbidities including end-stage renal disease, end-stage liver disease, requiring hemodialysis, ascites with cirrhosis, failure to thrive, anorexia who presented to the hospital with extreme weakness and inability to care for herself. Apparently the patient had been recently admitted to [facility] approximately 2 ago and was supposed to go on hospice however she refused. The HPI and history is obtained from the chart as the patient is not responding to any questions. Vascular surgery was consulted as the patient has a left femoral dialysis catheter that she wants removed. Unsure of when the dialysis catheter was placed, according to Dr. Tsai's note the catheter had been placed by Dr. Mc, there are no operative reports available at this time. Hospice has been consulted this admission. Review of Systems ROS unobtainable: due to mental status Past Medical History Past Medical History: Chest Pain / Angina, Hypertension, Seizure Disorder, Sleep Apnea/CPAP/BIPAP Additional Past Medical History / Comment(s): Rt breast itching since bx,rt breast CA, Uses CPAP, LAST SEIZURE IN 2014,varicose veins,hx colon polyp,pos h.pylori History of Any Multi-Drug Resistant Organisms: None Reported Past Surgical History: No Surgical Hx Reported Additional Past Surgical History / Comment(s): rt breast bx,ALL TEETH EXTRACTED,colonoscopy Past Anesthesia/Blood Transfusion Reactions: No Reported Reaction, Motion Sickness Additional Past Anesthesia/Blood Transfusion Reaction / Comm: NO General Anesthesia Past Psychological History: Anxiety Smoking Status: Current every day smoker Past Alcohol Use History: Occasional Past Drug Use History: None Reported Medications and Allergies Home Medications Medication Instructions Recorded Confirmed Type Anastrozole 1 mg PO DAILY 12/22/20 12/22/20 History Ascorbic Acid [Vitamin C with Diana 1,000 mg PO DAILY 12/22/20 12/22/20 History Hips] Aspirin 325 mg PO DAILY 12/22/20 12/22/20 History Cholecalciferol [Vitamin D3 (25 25 mcg PO DAILY 12/22/20 12/22/20 History Mcg = 1000 Iu)] Cyanocobalamin (Vitamin B-12) 1,000 mcg PO DAILY 12/22/20 12/22/20 History [Vitamin B-12] Folic Acid 1 mg PO DAILY 12/22/20 12/22/20 History HYDROcodone/APAP 7.5-325MG [Hope 1 tab PO TID 12/22/20 12/22/20 History 7.5-325] Loperamide HCl [Loperamide] 2 mg PO QID 12/22/20 12/22/20 History Magnesium Gluconate [Magonate] 500 mg PO DAILY 12/22/20 12/22/20 History Midodrine HCl [ProAmatine] 10 mg PO TID 12/22/20 12/22/20 History Pantoprazole [Protonix] 40 mg PO DAILY 12/22/20 12/22/20 History Potassium Chloride 10 meq PO BID 12/22/20 12/22/20 History Allergies Allergy/AdvReac Type Severity Reaction Status Date / Time iodine Allergy Rash/Hives Verified 12/22/20 13:18 Iodine and Iodide Containing Allergy Rash/Hives Verified 12/22/20 13:18 Produc lactose Allergy Diarrhea. Verified 12/22/20 13:18 ABD PAIN. metal Allergy Rash/Hives Uncoded 12/22/20 13:18 Surgical - Exam Vital Signs Temp Pulse Resp BP Pulse Ox 97.6 F 116 H 18 123/53 96 12/22/20 10:47 12/22/20 10:47 12/22/20 10:47 12/22/20 10:47 12/22/20 10:47 General appearance: The patient is anorexic, sleeping, pale. HET: Head is normocephalic and atraumatic. Neck: Supple without lymphadenopathy. Trachea midline. Heart: S1 S2. Regular rate and rhythm. Lungs: Clear to auscultation. Abdomen: Soft, distended. Skin: Decreased turgor, pale. Extremities: No edema bilaterally. Neurological: Sleepy, arousable with stimulation. Not responding to any questions. Results - Labs 12/23/20 06:01 12/23/20 06:01 Abnormal Lab Results - Last 24 Hours (Table) 12/22/20 12/22/20 12/22/20 Range/Units 11:56 11:56 11:56 WBC 20.4 H (3.8-10.6) k/uL RBC 2.43 L (3.80-5.40) m/uL Hgb 7.6 L (11.4-16.0) gm/dL Hct 25.0 L (34.0-46.0) % MCV 102.7 H (80.0-100.0) fL MCHC 30.6 L (31.0-37.0) g/dL RDW 15.6 H (11.5-15.5) % Neutrophils # (Manual) 19.90 H (1.3-7.7) k/uL Lymphocytes # (Manual) 0.20 L (1.0-4.8) k/uL PT 12.7 H (9.0-12.0) sec INR 1.2 H (<1.2) Potassium 7.2 H* (3.5-5.1) mmol/L Chloride 110 H (98-107) mmol/L Carbon Dioxide 12 L (22-30) mmol/L BUN 132 H* (7-17) mg/dL Creatinine 8.35 H* (0.52-1.04) mg/dL Glucose 36 L* (74-99) mg/dL POC Glucose (mg/dL) (75-99) mg/dL Plasma Lactic Acid Nitesh (0.7-2.0) mmol/L AST (14-36) U/L Alkaline Phosphatase 233 H (38-126) U/L Total Protein 5.7 L (6.3-8.2) g/dL Albumin 2.6 L (3.5-5.0) g/dL 12/22/20 12/22/20 12/22/20 Range/Units 11:56 13:13 14:48 WBC (3.8-10.6) k/uL RBC (3.80-5.40) m/uL Hgb (11.4-16.0) gm/dL Hct (34.0-46.0) % MCV (80.0-100.0) fL MCHC (31.0-37.0) g/dL RDW (11.5-15.5) % Neutrophils # (Manual) (1.3-7.7) k/uL Lymphocytes # (Manual) (1.0-4.8) k/uL PT (9.0-12.0) sec INR (<1.2) Potassium (3.5-5.1) mmol/L Chloride (98-107) mmol/L Carbon Dioxide (22-30) mmol/L BUN (7-17) mg/dL Creatinine (0.52-1.04) mg/dL Glucose (74-99) mg/dL POC Glucose (mg/dL) 129 H (75-99) mg/dL Plasma Lactic Acid Nitesh 6.4 H* 6.8 H* (0.7-2.0) mmol/L AST (14-36) U/L Alkaline Phosphatase (38-126) U/L Total Protein (6.3-8.2) g/dL Albumin (3.5-5.0) g/dL 12/22/20 12/22/20 12/22/20 Range/Units 16:29 17:40 17:40 WBC (3.8-10.6) k/uL RBC (3.80-5.40) m/uL Hgb (11.4-16.0) gm/dL Hct (34.0-46.0) % MCV (80.0-100.0) fL MCHC (31.0-37.0) g/dL RDW (11.5-15.5) % Neutrophils # (Manual) (1.3-7.7) k/uL Lymphocytes # (Manual) (1.0-4.8) k/uL PT (9.0-12.0) sec INR (<1.2) Potassium 6.1 H* (3.5-5.1) mmol/L Chloride (98-107) mmol/L Carbon Dioxide (22-30) mmol/L BUN (7-17) mg/dL Creatinine (0.52-1.04) mg/dL Glucose (74-99) mg/dL POC Glucose (mg/dL) 128 H (75-99) mg/dL Plasma Lactic Acid Nitesh 8.2 H* (0.7-2.0) mmol/L AST (14-36) U/L Alkaline Phosphatase (38-126) U/L Total Protein (6.3-8.2) g/dL Albumin (3.5-5.0) g/dL 12/22/20 12/22/20 12/22/20 Range/Units 18:10 18:40 18:41 WBC (3.8-10.6) k/uL RBC (3.80-5.40) m/uL Hgb (11.4-16.0) gm/dL Hct (34.0-46.0) % MCV (80.0-100.0) fL MCHC (31.0-37.0) g/dL RDW (11.5-15.5) % Neutrophils # (Manual) (1.3-7.7) k/uL Lymphocytes # (Manual) (1.0-4.8) k/uL PT (9.0-12.0) sec INR (<1.2) Potassium (3.5-5.1) mmol/L Chloride (98-107) mmol/L Carbon Dioxide (22-30) mmol/L BUN (7-17) mg/dL Creatinine (0.52-1.04) mg/dL Glucose (74-99) mg/dL POC Glucose (mg/dL) 46 L >600 H 130 H (75-99) mg/dL Plasma Lactic Acid Nitesh (0.7-2.0) mmol/L AST (14-36) U/L Alkaline Phosphatase (38-126) U/L Total Protein (6.3-8.2) g/dL Albumin (3.5-5.0) g/dL 12/22/20 12/23/20 12/23/20 Range/Units 20:26 00:27 05:43 WBC (3.8-10.6) k/uL RBC (3.80-5.40) m/uL Hgb (11.4-16.0) gm/dL Hct (34.0-46.0) % MCV (80.0-100.0) fL MCHC (31.0-37.0) g/dL RDW (11.5-15.5) % Neutrophils # (Manual) (1.3-7.7) k/uL Lymphocytes # (Manual) (1.0-4.8) k/uL PT (9.0-12.0) sec INR (<1.2) Potassium (3.5-5.1) mmol/L Chloride (98-107) mmol/L Carbon Dioxide (22-30) mmol/L BUN (7-17) mg/dL Creatinine (0.52-1.04) mg/dL Glucose (74-99) mg/dL POC Glucose (mg/dL) 402 H 121 H (75-99) mg/dL Plasma Lactic Acid Nitesh 7.6 H* (0.7-2.0) mmol/L AST (14-36) U/L Alkaline Phosphatase (38-126) U/L Total Protein (6.3-8.2) g/dL Albumin (3.5-5.0) g/dL 12/23/20 12/23/20 Range/Units 06:01 06:01 WBC 26.7 H (3.8-10.6) k/uL RBC 2.19 L (3.80-5.40) m/uL Hgb 7.0 L (11.4-16.0) gm/dL Hct 22.3 L (34.0-46.0) % MCV 101.9 H (80.0-100.0) fL MCHC (31.0-37.0) g/dL RDW 15.6 H (11.5-15.5) % Neutrophils # (Manual) (1.3-7.7) k/uL Lymphocytes # (Manual) (1.0-4.8) k/uL PT (9.0-12.0) sec INR (<1.2) Potassium 7.1 H* (3.5-5.1) mmol/L Chloride 111 H (98-107) mmol/L Carbon Dioxide 15 L (22-30) mmol/L BUN 132 H* (7-17) mg/dL Creatinine 7.67 H* (0.52-1.04) mg/dL Glucose (74-99) mg/dL POC Glucose (mg/dL) (75-99) mg/dL Plasma Lactic Acid Nitesh (0.7-2.0) mmol/L AST 40 H (14-36) U/L Alkaline Phosphatase 259 H (38-126) U/L Total Protein 5.2 L (6.3-8.2) g/dL Albumin 2.3 L (3.5-5.0) g/dL Microbiology - Last 24 Hours (Table) 12/22/20 18:14 Blood Culture - Preliminary Blood Diabetes panel 12/22/20 12/22/20 12/23/20 Range/Units 11:56 17:40 06:01 Sodium 143 143 (137-145) mmol/L Potassium 7.2 H* 6.1 H* 7.1 H* (3.5-5.1) mmol/L Chloride 110 H 111 H (98-107) mmol/L Carbon Dioxide 12 L 15 L (22-30) mmol/L BUN 132 H* 132 H* (7-17) mg/dL Creatinine 8.35 H* 7.67 H* (0.52-1.04) mg/dL Glucose 36 L* 89 (74-99) mg/dL Calcium 10.0 9.3 (8.4-10.2) mg/dL AST 28 40 H (14-36) U/L ALT 20 16 (4-34) U/L Alkaline Phosphatase 233 H 259 H (38-126) U/L Total Protein 5.7 L 5.2 L (6.3-8.2) g/dL Albumin 2.6 L 2.3 L (3.5-5.0) g/dL Calcium panel 12/22/20 12/23/20 Range/Units 11:56 06:01 Calcium 10.0 9.3 (8.4-10.2) mg/dL Albumin 2.6 L 2.3 L (3.5-5.0) g/dL Pituitary panel 12/22/20 12/22/20 12/23/20 Range/Units 11:56 17:40 06:01 Sodium 143 143 (137-145) mmol/L Potassium 7.2 H* 6.1 H* 7.1 H* (3.5-5.1) mmol/L Chloride 110 H 111 H (98-107) mmol/L Carbon Dioxide 12 L 15 L (22-30) mmol/L BUN 132 H* 132 H* (7-17) mg/dL Creatinine 8.35 H* 7.67 H* (0.52-1.04) mg/dL Glucose 36 L* 89 (74-99) mg/dL Calcium 10.0 9.3 (8.4-10.2) mg/dL Adrenal panel 12/22/20 12/22/20 12/23/20 Range/Units 11:56 17:40 06:01 Sodium 143 143 (137-145) mmol/L Potassium 7.2 H* 6.1 H* 7.1 H* (3.5-5.1) mmol/L Chloride 110 H 111 H (98-107) mmol/L Carbon Dioxide 12 L 15 L (22-30) mmol/L BUN 132 H* 132 H* (7-17) mg/dL Creatinine 8.35 H* 7.67 H* (0.52-1.04) mg/dL Glucose 36 L* 89 (74-99) mg/dL Calcium 10.0 9.3 (8.4-10.2) mg/dL Total Bilirubin 0.6 0.8 (0.2-1.3) mg/dL AST 28 40 H (14-36) U/L ALT 20 16 (4-34) U/L Alkaline Phosphatase 233 H 259 H (38-126) U/L Total Protein 5.7 L 5.2 L (6.3-8.2) g/dL Albumin 2.6 L 2.3 L (3.5-5.0) g/dL - Imaging Comments: CT abdomen and pelvis with findings of large amount of ascites. Indeterminate pelvic masses with associated calcification may be related to ovarian fibroids, left ovarian cystic mass is noted. Assessment and Plan Assessment: 1. Need for removal of temporary femoral dialysis catheter 2. End-stage renal disease on hemodialysis, hemodialysis being discontinued 3. Ascites 4. History of end-stage liver disease with cirrhosis of the liver and ascites Plan: 1. Continue symptomatic and supportive care 2. Plan for discontinuation of temporary hemodialysis catheter Thank you for this consultation and allowing us take part in the plan of care of your patient. We will sign off after removal of dialysis catheter. The impression and plan of care has been dictated as directed. Dr. Murray I performed a history and examination of this patient, discussed the same with the dictator. I agree with the dictator's note ,documented as a scribe. Any additional findings or plans will be noted.
[2020-12-23] MEDS: DEXTROSE 5% IN WATER 1,000 ML with SODIUM BICARB (1 MEQ/ML) 150 ML IV SCH ×2 (11:45→19:21)
[2020-12-23 11:57] LABS: Band Neutrophils % 7 %; Lymphocytes # (M) 0.27 k/uL (1.0-4.8); Monocytes # (M) 1.07 k/uL (0-1.0); Neutrophils % (M) 88 %; Nucleated Red Blood Cells 0 /100 WBC (0-0); Total Cells Counted 100; Toxic Vacuolation Present
[2020-12-23 12:48] LABS: Cancer Antigen 125 132.2 U/mL (0.0-30.1)
[2020-12-23 13:00] LABS: Glucose,Whole Blood 111 mg/dL (75-99)
--- NOTE | 2020-12-23 13:00 | CONS ---
CONSULTATION REASON FOR CONSULT: Renal failure. HISTORY OF PRESENT ILLNESS: Patient is a 60-year-old female with history of chronic liver disease, recurrent paracentesis, and hepatorenal syndrome who was started on hemodialysis at [facility]. The patient has had failure to thrive, chronic hypotension and had not been able to dialyze her successfully. Her code status was switched to hospice care and patient was discharged from [facility]. However, her dialysis catheter was still in and the patient was supposed to have that removed as outpatient, but she was not able to come into the hospital. It appears that the patient did not switch to hospice care. She had refused hospice as outpatient, although she continues to refuse dialysis as well. Mentation cm, the patient was fairly lucid yesterday in the ER and she was admitted with a potassium of 7 and serum creatinine of 8.3, and at that time she stated that she did not want to continue with dialysis. I had discussed with her at [facility] during her hospitalization there that she is not an ideal candidate for long-term renal replacement therapy and hospice care/comfort care measures should be discussed. No complaints of chest pain or shortness of breath this morning. Patient is lying in bed. She is fairly lethargic, very cachectic. PAST MEDICAL HISTORY: Chronic liver disease, hepatorenal syndrome and acute kidney injury on recent hospitalization, history of hypertension, seizure disorder, sleep apnea, breast cancer, colonic polyps, varicose veins. PAST SURGICAL HISTORY: Right breast biopsy, extraction of teeth, colonoscopy. SOCIAL HISTORY: Patient is a current daily smoker. MEDICATIONS: Medications prior to admission included: Vitamin C, anastrozole, aspirin, vitamin D, folic acid, magnesium, midodrine, Protonix, potassium chloride. ALLERGIES: Include IODINE, LACTOSE, METAL, which causes rash and hives. Details not known. REVIEW OF SYSTEMS: As per HPI. Other systems negative. No history of diarrhea. Patient's oral intake is poor. PHYSICAL EXAMINATION: On examination, the patient is lying in bed. She is barely arousable. Blood pressure is 97/60, heart rate 89 per minute. She is afebrile examination of the heart S1, S2. Examination of the lungs, bilateral breath sounds are heard. She is very cachectic. Abdomen is soft, distended with ascites. Examination of the lower extremities shows edema 2+ bilaterally. Left femoral catheter is in place. LAB: Show sodium 143 potassium 7.1, hemoglobin 7.1, CO2 is 15, chloride 111, BUN 131, creatinine 7.67, hemoglobin 7.0. ASSESSMENT: 1. Acute kidney injury, hepatorenal syndrome from last admission, however currently there was component of acute tubular necrosis from hypotension and volume depletion. Continue with IV fluids for now. The patient would have ideally been dialyzed given her significant metabolic derangements on admission, however she had refused dialysis yesterday and we will continue to treat her medically for now. The left femoral catheter needs to be discontinued. 2. Hyperkalemia associated with acute kidney injury, metabolic acidosis, treated with medical treatment. 3. Chronic debility, failure to thrive. 4. Underlying chronic liver disease with recurrent ascites. 5. Metabolic acidosis secondary to renal failure. 6. Anemia with no active bleeding noted. 7. Lactic acidosis adding to the metabolic acidosis. PLAN: Continue with IV bicarb. Treat hyperkalemia medically. No plans for dialysis. Remove left femoral catheter. Antibiotics as per ID. Continue oral midodrine if patient can tolerate oral intake. Solu-Cortef has been added. Repeat potassium in about 3 hours. Overall prognosis is guarded. The patient should be considered for comfort care/hospice care. Thank you for this consultation. MMODL / IJN: [id number] /
[2020-12-23 13:46] VITALS: BMI 18.1
[2020-12-23] MEDS: SODIUM CHLORIDE 0.9% 1,000 ML IV SCH (16:58)
[2020-12-23 17:35] LABS: Glucose,Whole Blood 131 mg/dL (75-99)
--- NOTE | 2020-12-23 19:11 | P.PN ---
Subjective Progress Note Date: 12/23/20 Chief Complaint: Weakness This is a 60-year-old pleasant lady, with multiple significant comorbidities including end-stage renal and liver disease, requiring hemodialysis, ascites with cirrhosis abdominal pain, shortness of breath, cachectic shock, failure to thrive, anorexia, significant weight loss, was last admitted at [facility], approximately 2 weeks ago, and was supposed to be on hospice. She refused hospice care, has difficulty of caring for herself, she was hypotensive when seen in the emergency room, she also has a left dialysis catheter femoral area for which she wants it removed. She thinks that this might giving her problems, when inspected, there is some redness surrounding the area, there is no surgical dressing in place, and there is some yellowish green discharge from the circumference of the catheter area. She was tachycardic on admission, and hypotensive, systolic in the 80s, Emergency room, potassium was 7.2, creatinine was 8.35, alkaline phosphatase 233, WBC count 20.4, lactic acid is elevated, coronavirus PCR negative. Patient was evaluated by myself also after admission to the emergency room, and discussed the hospice option, eyes she does have critical hyperkalemia, with significant hypotension. We've started her on ranitidine, and given her some fluid boluses, there is also ascites noted on examination. X-rays shows no acute disease, has COPD changes, no overt failure EKG, sinus tachycardia 111, nonspecific ST-T wave changes, no peak T waves I discussed this with Dr. mc for the left femoral catheter, for the dialysis, consult with Dr. Rodrigez, patient will be started on cefepime renal dose, vancomycin, consult with Dr. Mc, however his flying to [place] in the morning. He recommends getting Dr. Moore in [place] first, prior to discontinuing this catheter, for access to dialysis for the critical hyperkalemia blood cultures done, 12/23: I have been updated by the nursing staff from the emergency room ye sterday, Dr. Villalpando has seen the patient, patient refused dialysis, and once to have the dialysis catheter removed, patient also now agreed to hospice consultation, morphine was started for pain control, we have updated the family, however the mother cannot be contacted as she is also on hospice, and not doing too well, and we have contacted the sister, for which we have updated her, and hospice is desired also by the sister and another brother. They have lost communication over the years, when seen today, patient is very weak looking, no respiratory distress, however she is not alert and awake to provide any meaningful conversation this time, prognosis is extremely guarded, labs cannot be drawn, blood pressure is marginally low, pro-calcitonin is elevated, CVA 125 antigen is elevated, creatinine are 7.6, potassium is at 7.1, all noncompatible to coronary clinical specialist without dialysis, did not respond to Kayexalate treatment, patient's receiving cefepime and vancomycin, based on these hospice recommendation, we will discontinue IV antibiotics and withdraw aggressive treatment, hospice is in place CODE STATUS DO NOT RESUSCITATE, patient cannot awake for any nutrition, and has been declining, with a collection severe cachexia, start on IV morphine for comfort, and scopolamine patches, Review of Systems Constitutional: Reports as per HPI, Reports anorexia, Reports fatigue, Reports malaise, Reports poor appetite, Reports weakness, Reports weight loss Ears, nose, mouth and throat: Reports as per HPI, Denies ant. neck pain, Denies bleeding gums, Denies dental pain, Denies dysphagia, Denies epistaxis, Denies headache, Denies hoarseness, Denies mouth pain, Denies nasal congestion, Denies nasal discharge, Denies neck fullness/pressure, Denies neck lump, Denies nose pain, Denies odynophagia, Denies post-nasal drip, Denies sinus pain, Denies sinus pressure, Denies swelling in mouth, Denies swelling in throat, Denies sore throat, Denies vertigo, Denies voice changes Cardiovascular: Reports as per HPI, Reports decreased exercise tolerance, Reports dyspnea on exertion, Reports edema, Reports leg edema, Reports lightheadedness, Reports orthopnea, Reports shortness of breath, Denies chest pa in, Denies claudication, Denies irregular heart beat, Denies palpitations, Denies syncope Respiratory: Reports as per HPI, Reports dyspnea, Denies congestion, Denies cough, Denies cough with sputum, Denies excessive sputum, Denies hemoptysis, Denies home oxygen, Denies pain, Denies pain on inspiration, Denies pleurisy, Denies respiratory infections, Denies sleep apnea, Denies snoring, Denies wheezing Gastrointestinal: Reports as per HPI, Reports abdominal pain, Reports early satiety, Reports indigestion, Reports loss of appetite Genitourinary: Reports as per HPI Menstruation: Reports as per HPI Musculoskeletal: Reports as per HPI, Denies arm numbness/tingling, Denies atrophy, Denies fractures, Denies frequent falls, Denies gait dysfunction, Denies hot joints, Denies leg numbness/tingling, Denies limitation of motion, Denies loss of height, Denies low back pain, Denies morning stiffness, Denies muscle cramps, Denies muscle weakness, Denies myalgias, Denies neck pain, Denies neck stiffness, Denies prior amputations, Denies redness of joints, Denies shooting arm pain, Denies shooting leg pain Integumentary: Reports as per HPI Neurological: Reports as per HPI, Reports confusion, Reports gait dysfunction, Reports memory loss, Reports weakness Psychiatric: Reports as per HPI Endocrine: Reports as per HPI, Denies cold intolerance, Denies deepening of the voice, Denies excessive sweating, Denies excessive thirst, Denies fatigue, Denies flushing, Denies heat intolerance, Denies high blood sugars, Denies increase in ring/shoe/hat size, Denies low blood sugars, Denies nocturia, Denies palpitations, Denies polydipsia, Denies polyphagia, Denies polyuria, Denies proptosis, Denies recent glucocorticoid use, Denies thyroid mass, Denies weight change Hematologic/Lymphatic: Reports as per HPI Allergic/Immunologic: Reports as per HPI, Denies allergic rhinitis, Denies anaphylaxis, Denies angioedema, Denies gluten intolerance, Denies persistent infections, Denies seasonal allergies, Denies urticaria, Denies wheezing Objective - Vital Signs Vital signs: Vital Signs Temp 97.4 F L 12/23/20 05:00 Pulse 89 12/23/20 05:00 Resp 12 12/23/20 05:00 BP 97/60 12/23/20 05:00 Pulse Ox 97 12/23/20 05:00 Intake & Output 12/22/20 12/23/20 12/23/20 18:59 06:59 18:59 Intake Total 1170 Balance 1170 Weight 41.73 kg 42 kg Intake: Intake, IV Titration 1140 Amount Cefepime 1 gm In Sodium 50 Chloride 0.9% 50 ml @ 12. 5 mls/hr IVPB Q24H [facility] Rx #:[id number] Dextrose 5% in Water 1, 840 000 ml @ 70 mls/hr IV . [id number] [facility] Rx#:[id number] Vancomycin 1,000 mg In 250 Sodium Chloride 0.9% 250 ml @ 125 mls/hr IVPB ONCE ONE Rx#:[id number] Oral 30 Other: # Voids 0 # Bowel Movements 0 - Exam Obtunded very weak and noticed her distress - Constitutional General appearance: Present: thin - EENT Eyes: Present: anicteric sclerae - Respiratory Respiratory: bilateral: diminished, rhonchi, negative: wheezing, prolonged expiration - Cardiovascular Rhythm: regular Heart sounds: normal: S1, S2 Abnormal Heart Sounds: Absent: systolic murmur, diastolic murmur, rub, S3 Gallop, S4 Gallop, click, other - Gastrointestinal General gastrointestinal: Present: normal bowel sounds, soft - Integumentary Integumentary: Present: decreased turgor, normal - Psychiatric Psychiatric Comment(s): obtunded - Labs CBC & Chem 7: 12/23/20 06:01 12/23/20 06:01 Labs: Abnormal Lab Results - Last 24 Hours (Table) 12/22/20 12/22/20 12/22/20 Range/Units 11:56 11:56 11:56 WBC 20.4 H (3.8-10.6) k/uL RBC 2.43 L (3.80-5.40) m/uL Hgb 7.6 L (11.4-16.0) gm/dL Hct 25.0 L (34.0-46.0) % MCV 102.7 H (80.0-100.0) fL MCHC 30.6 L (31.0-37.0) g/dL RDW 15.6 H (11.5-15.5) % Neutrophils # (Manual) 19.90 H (1.3-7.7) k/uL Lymphocytes # (Manual) 0.20 L (1.0-4.8) k/uL PT 12.7 H (9.0-12.0) sec INR 1.2 H (<1.2) Potassium 7.2 H* (3.5-5.1) mmol/L Chloride 110 H (98-107) mmol/L Carbon Dioxide 12 L (22-30) mmol/L BUN 132 H* (7-17) mg/dL Creatinine 8.35 H* (0.52-1.04) mg/dL Glucose 36 L* (74-99) mg/dL POC Glucose (mg/dL) (75-99) mg/dL Plasma Lactic Acid Nitesh (0.7-2.0) mmol/L AST (14-36) U/L Alkaline Phosphatase 233 H (38-126) U/L Total Protein 5.7 L (6.3-8.2) g/dL Albumin 2.6 L (3.5-5.0) g/dL 12/22/20 12/22/20 12/22/20 Range/Units 11:56 13:13 14:48 WBC (3.8-10.6) k/uL RBC (3.80-5.40) m/uL Hgb (11.4-16.0) gm/dL Hct (34.0-46.0) % MCV (80.0-100.0) fL MCHC (31.0-37.0) g/dL RDW (11.5-15.5) % Neutrophils # (Manual) (1.3-7.7) k/uL Lymphocytes # (Manual) (1.0-4.8) k/uL PT (9.0-12.0) sec INR (<1.2) Potassium (3.5-5.1) mmol/L Chloride (98-107) mmol/L Carbon Dioxide (22-30) mmol/L BUN (7-17) mg/dL Creatinine (0.52-1.04) mg/dL Glucose (74-99) mg/dL POC Glucose (mg/dL) 129 H (75-99) mg/dL Plasma Lactic Acid Nitesh 6.4 H* 6.8 H* (0.7-2.0) mmol/L AST (14-36) U/L Alkaline Phosphatase (38-126) U/L Total Protein (6.3-8.2) g/dL Albumin (3.5-5.0) g/dL 12/22/20 12/22/20 12/22/20 Range/Units 16:29 17:40 17:40 WBC (3.8-10.6) k/uL RBC (3.80-5.40) m/uL Hgb (11.4-16.0) gm/dL Hct (34.0-46.0) % MCV (80.0-100.0) fL MCHC (31.0-37.0) g/dL RDW (11.5-15.5) % Neutrophils # (Manual) (1.3-7.7) k/uL Lymphocytes # (Manual) (1.0-4.8) k/uL PT (9.0-12.0) sec INR (<1.2) Potassium 6.1 H* (3.5-5.1) mmol/L Chloride (98-107) mmol/L Carbon Dioxide (22-30) mmol/L BUN (7-17) mg/dL Creatinine (0.52-1.04) mg/dL Glucose (74-99) mg/dL POC Glucose (mg/dL) 128 H (75-99) mg/dL Plasma Lactic Acid Nitesh 8.2 H* (0.7-2.0) mmol/L AST (14-36) U/L Alkaline Phosphatase (38-126) U/L Total Protein (6.3-8.2) g/dL Albumin (3.5-5.0) g/dL 12/22/20 12/22/20 12/22/20 Range/Units 18:10 18:40 18:41 WBC (3.8-10.6) k/uL RBC (3.80-5.40) m/uL Hgb (11.4-16.0) gm/dL Hct (34.0-46.0) % MCV (80.0-100.0) fL MCHC (31.0-37.0) g/dL RDW (11.5-15.5) % Neutrophils # (Manual) (1.3-7.7) k/uL Lymphocytes # (Manual) (1.0-4.8) k/uL PT (9.0-12.0) sec INR (<1.2) Potassium (3.5-5.1) mmol/L Chloride (98-107) mmol/L Carbon Dioxide (22-30) mmol/L BUN (7-17) mg/dL Creatinine (0.52-1.04) mg/dL Glucose (74-99) mg/dL POC Glucose (mg/dL) 46 L >600 H 130 H (75-99) mg/dL Plasma Lactic Acid Nitesh (0.7-2.0) mmol/L AST (14-36) U/L Alkaline Phosphatase (38-126) U/L Total Protein (6.3-8.2) g/dL Albumin (3.5-5.0) g/dL 12/22/20 12/23/20 12/23/20 Range/Units 20:26 00:27 05:43 WBC (3.8-10.6) k/uL RBC (3.80-5.40) m/uL Hgb (11.4-16.0) gm/dL Hct (34.0-46.0) % MCV (80.0-100.0) fL MCHC (31.0-37.0) g/dL RDW (11.5-15.5) % Neutrophils # (Manual) (1.3-7.7) k/uL Lymphocytes # (Manual) (1.0-4.8) k/uL PT (9.0-12.0) sec INR (<1.2) Potassium (3.5-5.1) mmol/L Chloride (98-107) mmol/L Carbon Dioxide (22-30) mmol/L BUN (7-17) mg/dL Creatinine (0.52-1.04) mg/dL Glucose (74-99) mg/dL POC Glucose (mg/dL) 402 H 121 H (75-99) mg/dL Plasma Lactic Acid Nitesh 7.6 H* (0.7-2.0) mmol/L AST (14-36) U/L Alkaline Phosphatase (38-126) U/L Total Protein (6.3-8.2) g/dL Albumin (3.5-5.0) g/dL 12/23/20 12/23/20 Range/Units 06:01 06:01 WBC 26.7 H (3.8-10.6) k/uL RBC 2.19 L (3.80-5.40) m/uL Hgb 7.0 L (11.4-16.0) gm/dL Hct 22.3 L (34.0-46.0) % MCV 101.9 H (80.0-100.0) fL MCHC (31.0-37.0) g/dL RDW 15.6 H (11.5-15.5) % Neutrophils # (Manual) (1.3-7.7) k/uL Lymphocytes # (Manual) (1.0-4.8) k/uL PT (9.0-12.0) sec INR (<1.2) Potassium 7.1 H* (3.5-5.1) mmol/L Chloride 111 H (98-107) mmol/L Carbon Dioxide 15 L (22-30) mmol/L BUN 132 H* (7-17) mg/dL Creatinine 7.67 H* (0.52-1.04) mg/dL Glucose (74-99) mg/dL POC Glucose (mg/dL) (75-99) mg/dL Plasma Lactic Acid Nitesh (0.7-2.0) mmol/L AST 40 H (14-36) U/L Alkaline Phosphatase 259 H (38-126) U/L Total Protein 5.2 L (6.3-8.2) g/dL Albumin 2.3 L (3.5-5.0) g/dL Microbiology - Last 24 Hours (Table) 12/22/20 18:14 Blood Culture - Preliminary Blood 12/22/20 18:14 Blood Culture - Preliminary Blood Assessment and Plan Plan: 1. Severe Critical illness related to end-stage renal disease, with hyperkalemia, hypotension, cachexia, severe malnutrition, end-stage liver disease, who is the best perfect candidate for hospice, however patient disposition this option, patient comes in with hypotension, hyperkalemia, and purulent drainage from the left femoral dialysis catheter, patient is started on cefepime, 1 g every 12 hours renal dose, vancomycin, 1 g bolus with pharmacy to dose, consult with Dr. Moore, infectious disease, blood cultures 2. Severe malnutrition, protein calorie with severe hypo-glycemia glucose was 36 on entry, D5 was started, has anorexia, patient refuses any orexigenic agents, we will discuss this further 3. Suspected adrenal insufficiency, possible adrenal crisis, however there is no hyponatremia, and patient has hypernatremia, and no eosinophilia started on hydrocortisone 100 mg IV. Every 8 hours, ranitidine 4. Hypotension without abnormal dysfunction, start with a dream 10 mg 3 times a day, has underlying component of dehydration, and acute kidney failure, 5 Acute kidney failure, with CK D stage V, HEENT hemodialysis is not stable at this time and feasible at this time secondary to severe hypotension, Dr. Villalpando was consulted. 5 Hyperkalemia, Kayexalate provided, IV hydration 6 Sepsis with SIRS, multifactorial, cefepime, and vancomycin, blood cultures, consult infectious disease 7 Severe anemia, most likely iron deficiency, need to investigate whether the our onto the underlying GI losses, need Hemoccult stools, 8 Ascites, most likely secondary to liver disease, however there is an ovarian mass with cystic component, C1 25 are was ordered 9 Anasarca, with ascites, most likely secondary to protein malnutrition, as well as other factors of nutrition, and disease processes unable to diurese secondary to hypotension 10 Hospice declined by patient 11 CODE STATUS DO NOT RESUSCITATE 12 I prophylaxis DVT prophylaxis Prognosis severely guarded, life expectancy is very limited, to less than few days Hospice care, per family recommendations, next of Kin is sister and brother, for which they have been contacted, patient had agreed to hospice care initially she refuses any dialysis, mother is unable to be contacted secondary to end of life illness, mother is also at hospice care this time. We'll discontinue an aggres sive treatment, comfort care measures only, IV morphine, and scopolamine patch, withdrawal treatment to include vancomycin, and cefepime sepsis with septic shock, end-stage renal disease, severe hyperkalemia, severe protein calorie nutrition, as comorbid condition leading to imminent threat of life, Deathis unavoidable. Hospice , with [facility], for discharge.
[2020-12-23] MEDS: SCOPOLAMINE 1.5MG/72HR PATCH TRANSDERM SCH (20:35)
[2020-12-24 00:03] LABS: Glucose,Whole Blood 159 mg/dL (75-99)
[2020-12-24] MEDS: HYDROCORTISONE SUCCINATE 100 MG/2 ML VIAL IV SCH ×3 (00:08→16:41)
[2020-12-24] MEDS: MORPHINE SULFATE 2 MG/ML SYRINGE IVP PRN ×5 (00:22→22:10)
[2020-12-24] MEDS: SODIUM CHLORIDE 0.9% 1,000 ML IV SCH ×2 (04:26→16:40)
[2020-12-24 05:57] LABS: Glucose,Whole Blood 139 mg/dL (75-99)
[2020-12-24] MEDS: DEXTROSE 5% IN WATER 1,000 ML with SODIUM BICARB (1 MEQ/ML) 150 ML IV SCH ×2 (06:26→21:30)
[2020-12-24] MEDS: ONDANSETRON 4 MG/2 ML VIAL IVP PRN ×2 (08:22→16:39)
[2020-12-24] MEDS ORDERED: CEFEPIME 2 GM in SODIUM CHLORIDE 0.9% 100 ML IVPB SCH (16:00)
--- NOTE | 2020-12-24 16:45 | P.PN ---
Subjective Progress Note Date: 12/24/20 Chief Complaint: Weakness This is a 60-year-old pleasant lady, with multiple significant comorbidities including end-stage renal and liver disease, requiring hemodialysis, ascites with cirrhosis abdominal pain, shortness of breath, cachectic shock, failure to thrive, anorexia, significant weight loss, was last admitted at [facility], approximately 2 weeks ago, and was supposed to be on hospice. She refused hospice care, has difficulty of caring for herself, she was hypotensive when seen in the emergency room, she also has a left dialysis catheter femoral area for which she wants it removed. She thinks that this might giving her problems, when inspected, there is some redness surrounding the area, there is no surgical dressing in place, and there is some yellowish green discharge from the circumference of the catheter area. She was tachycardic on admission, and hypotensive, systolic in the 80s, Emergency room, potassium was 7.2, creatinine was 8.35, alkaline phosphatase 233, WBC count 20.4, lactic acid is elevated, coronavirus PCR negative. Patient was evaluated by myself also after admission to the emergency room, and discussed the hospice option, eyes she does have critical hyperkalemia, with significant hypotension. We've started her on ranitidine, and given her some fluid boluses, there is also ascites noted on examination. X-rays shows no acute disease, has COPD changes, no overt failure EKG, sinus tachycardia 111, nonspecific ST-T wave changes, no peak T waves I discussed this with Dr. mc for the left femoral catheter, for the dialysis, consult with Dr. Rodrigez, patient will be started on cefepime renal dose, vancomycin, consult with Dr. Mc, however his flying to [place] in the morning. He recommends getting Dr. Moore in [place] first, prior to discontinuing this catheter, for access to dialysis for the critical hyperkalemia blood cultures done, 12/23: I have been updated by the nursing staff from the emergency room ye sterday, Dr. Villalpando has seen the patient, patient refused dialysis, and once to have the dialysis catheter removed, patient also now agreed to hospice consultation, morphine was started for pain control, we have updated the family, however the mother cannot be contacted as she is also on hospice, and not doing too well, and we have contacted the sister, for which we have updated her, and hospice is desired also by the sister and another brother. They have lost communication over the years, when seen today, patient is very weak looking, no respiratory distress, however she is not alert and awake to provide any meaningful conversation this time, prognosis is extremely guarded, labs cannot be drawn, blood pressure is marginally low, pro-calcitonin is elevated, CVA 125 antigen is elevated, creatinine are 7.6, potassium is at 7.1, all noncompatible to wildlife ecologist without dialysis, did not respond to Kayexalate treatment, patient's receiving cefepime and vancomycin, based on these hospice recommendation, we will discontinue IV antibiotics and withdraw aggressive treatment, hospice is in place CODE STATUS DO NOT RESUSCITATE, patient cannot awake for any nutrition, and has been declining, with a collection severe cachexia, start on IV morphine for comfort, and scopolamine patches, 12/24, patient remains to be obtunded today, unable to provide any conversation, she would is awake, which is therapeutic, mumbling just vocalizing words without any bleeding, we have contacted family members, initially they wanted her to be in hospice, however would not want to sign for the hospice certification, no other family relatives aren't available to assist with legal and medical affairs, including the boyfriend upon phone conversation . Discussed with pillowcase maker, patient would need emergent surrogate for legal medical decision making, patient is not expected to live for the next few days, patient was made comfortable, she still has clinical septic picture as well as severe end-stage kidney failure not candidate for long-term dialysis, we would resume cefepime, until legal determination for her estate and physical body. Review of Systems Constitutional: Reports as per HPI, Reports anorexia, Reports fatigue, Reports malaise, Reports poor appetite, Reports weakness, Reports weight loss Ears, nose, mouth and throat: Reports as per HPI, Denies ant. neck pain, Denies bleeding gums, Denies dental pain, Denies dysphagia, Denies epistaxis, Denies headache, Denies hoarseness, Denies mouth pain, Denies nasal congestion, Denies nasal discharge, Denies neck fullness/pressure, Denies neck lump, Denies nose pain, Denies odynophagia, Denies post-nasal drip, Denies sinus pain, Denies sinus pressure, Denies swelling in mouth, Denies swelling in throat, Denies sore throat, Denies vertigo, Denies voice changes Cardiovascular: Reports as per HPI, Reports decreased exercise tolerance, Report s dyspnea on exertion, Reports edema, Reports leg edema, Reports lightheadedness, Reports orthopnea, Reports shortness of breath, Denies chest pain, Denies claudication, Denies irregular heart beat, Denies palpitations, Denies syncope Respiratory: Reports as per HPI, Reports dyspnea, Denies congestion, Denies cough, Denies cough with sputum, Denies excessive sputum, Denies hemoptysis, Denies home oxygen, Denies pain, Denies pain on inspiration, Denies pleurisy, Denies respiratory infections, Denies sleep apnea, Denies snoring, Denies wheezing Gastrointestinal: Reports as per HPI, Reports abdominal pain, Reports early satiety, Reports indigestion, Reports loss of appetite Genitourinary: Reports as per HPI Menstruation: Reports as per HPI Musculoskeletal: Reports as per HPI, Denies arm numbness/tingling, Denies atrophy, Denies fractures, Denies frequent falls, Denies gait dysfunction, Denies hot joints, Denies leg numbness/tingling, Denies limitation of motion, D enies loss of height, Denies low back pain, Denies morning stiffness, Denies muscle cramps, Denies muscle weakness, Denies myalgias, Denies neck pain, Denies neck stiffness, Denies prior amputations, Denies redness of joints, Denies shooting arm pain, Denies shooting leg pain Integumentary: Reports as per HPI Neurological: Reports as per HPI, Reports confusion, Reports gait dysfunction, Reports memory loss, Reports weakness Psychiatric: Reports as per HPI Endocrine: Reports as per HPI, Denies cold intolerance, Denies deepening of the voice, Denies excessive sweating, Denies excessive thirst, Denies fatigue, Denies flushing, Denies heat intolerance, Denies high blood sugars, Denies increase in ring/shoe/hat size, Denies low blood sugars, Denies nocturia, Denies palpitations, Denies polydipsia, Denies polyphagia, Denies polyuria, Denies proptosis, Denies recent glucocorticoid use, Denies thyroid mass, Denies weight change Hematologic/Lymphatic: Reports as per HPI Allergic/Immunologic: Reports as per HPI, Denies allergic rhinitis, Denies anaphylaxis, Denies angioedema, Denies gluten intolerance, Denies persistent infections, Denies seasonal allergies, Denies urticaria, Denies wheezing Objective - Vital Signs Vital signs: Vital Signs Temp 97.6 F 12/23/20 20:22 Pulse 70 12/24/20 04:21 Resp 18 12/24/20 08:00 BP 93/63 12/24/20 04:21 Pulse Ox 80 L 12/24/20 04:21 Intake & Output 12/23/20 12/24/20 12/24/20 18:59 06:59 18:59 Intake Total 600 Balance 600 Weight 42 kg Intake: Intake, IV Titration 600 Amount Dextrose 5% in Water 1, 600 000 ml @ 100 mls/hr IV . [id number] NANCY with Sodium Bicarb (1 Meq/ml) 150 ml Rx#:[id number] Other: # Voids 1 # Bowel Movements 0 - Exam Obtunded very weak and noticed her distress - Constitutional General appearance: Present: no acute distress - EENT Eyes: Present: anicteric sclerae, EOMI, PERRLA ENT: Present: NA/AT, normal oropharynx - Neck Neck: Present: normal ROM - Respiratory Respiratory: bilateral: CTA, diminished, negative: dullness, rales - Cardiovascular Rhythm: regular Heart sounds: normal: S1, S2 Abnormal Heart Sounds: Absent: systolic murmur, diastolic murmur, rub, S3 Gallop, S4 Gallop, click, other - Gastrointestinal General gastrointestinal: Present: distended, soft - Neurologic Neurologic Comment(s): awake not verbally responding, has gibberish words - Labs CBC & Chem 7: 12/23/20 06:01 12/23/20 06:01 Labs: Abnormal Lab Results - Last 24 Hours (Table) 12/23/20 12/23/20 12/23/20 Range/Units 06:01 06:01 12:59 POC Glucose (mg/dL) 111 H (75-99) mg/dL CA 125 Antigen 132.2 H (0.0-30.1) U/mL Procalcitonin 69.73 H (0.02-0.09) ng/mL 12/23/20 12/23/20 12/24/20 Range/Units 17:34 23:54 05:55 POC Glucose (mg/dL) 131 H 159 H 139 H (75-99) mg/dL CA 125 Antigen (0.0-30.1) U/mL Procalcitonin (0.02-0.09) ng/mL Microbiology - Last 24 Hours (Table) 12/22/20 18:14 Blood Culture Gram Stain - Preliminary Blood Blood Culture - Preliminary Staphylococcus aureus 12/22/20 18:14 Blood Culture - Preliminary Blood Assessment and Plan Plan: 1. Severe Critical illness related to end-stage renal disease, with hyperkalemia, hypotension, cachexia, severe malnutrition, end-stage liver disease, who is the best perfect candidate for hospice, however patient disposition this option, patient comes in with hypotension, hyperkalemia, and purulent drainage from the left femoral dialysis catheter, patient is started on cefepime, 1 g every 12 hours renal dose, vancomycin, 1 g bolus with pharmacy to dose, cancel consult Dr. Moore, infectious disease, blood cultures. Femoral dialysis catheter was discontinued vascular surgeon Dr. Murray 2. Severe malnutrition, protein calorie with severe hypo-glycemia glucose was 36 on entry, D5 was started, has anorexia, patient refuses any orexigenic agents, we will discuss this further 3. Suspected adrenal insufficiency, possible adrenal crisis, however there is n o hyponatremia, and patient has hypernatremia, and no eosinophilia started on hydrocortisone 100 mg IV. Every 8 hours, ranitidine 4. Hypotension without abnormal dysfunction, start with a dream 10 mg 3 times a day, has underlying component of dehydration, and acute kidney failure, 5 Acute kidney failure, with CK D stage V, HEENT hemodialysis is not stable at this time and feasible at this time secondary to severe hypotension, Dr. Villalpando was consulted. 5 Hyperkalemia, Kayexalate provided, IV hydration 6 Sepsis with SIRS, multifactorial, cefepime, and vancomycin, blood cultures, consult infectious disease 7 Severe anemia, most likely iron deficiency, need to investigate whether the our onto the underlying GI losses, need Hemoccult stools, 8 Ascites, most likely secondary to liver disease, however there is an ovarian mass with cystic component, C1 25 are was ordered 9 Anasarca, with ascites, most likely secondary to protein malnutrition, as well as other factors of nutrition, and disease processes unable to diurese secondary to hypotension 10 Hospice declined by patient 11 CODE STATUS DO NOT RESUSCITATE 12 I prophylaxis DVT prophylaxis Prognosis severely guarded, life expectancy is very limited, to less than few days Hospice care, per family recommendations, next of Kin is sister and brother, for which they have been contacted, patient had agreed to hospice care initially she refuses any dialysis, mother is unable to be contacted secondary to end of life illness, mother is also at hospice care this time. We'll discontinue an aggressive treatment, comfort care measures only, IV morphine, and scopolamine patch, withdrawal treatment to include vancomycin, and cefepime sepsis with septic shock, end-stage renal disease, severe hyperkalemia, severe protein calorie nutrition, as comorbid condition leading to imminent threat of life, Deathis unavoidable. [facility] will need emergent legal guardian as the next of kin brother and sister now does not want any legal action to assist the critical ill sibling. Should there be no money for cremation, I discussed this with social organization professor, that body bequeathing for medical science might be a viable option.
[2020-12-25] MEDS: HYDROCORTISONE SUCCINATE 100 MG/2 ML VIAL IV SCH ×2 (00:21→08:32)
[2020-12-25] MEDS: MORPHINE SULFATE 2 MG/ML SYRINGE IVP PRN ×4 (01:52→19:23)
[2020-12-25] MEDS: SODIUM CHLORIDE 0.9% 1,000 ML IV SCH ×2 (04:36→23:15)
[2020-12-25] MEDS: DEXTROSE 5% IN WATER 1,000 ML with SODIUM BICARB (1 MEQ/ML) 150 ML IV SCH ×2 (05:41→23:16)
[2020-12-25] MEDS: ONDANSETRON 4 MG/2 ML VIAL IVP PRN (08:32)
[2020-12-25] MEDS ORDERED: CEFEPIME 1 GM in SODIUM CHLORIDE 0.9% 50 ML IVPB SCH (16:00)
--- NOTE | 2020-12-25 17:16 | P.PN ---
Subjective Progress Note Date: 12/25/20 Chief Complaint: Weakness This is a 60-year-old pleasant lady, with multiple significant comorbidities including end-stage renal and liver disease, requiring hemodialysis, ascites with cirrhosis abdominal pain, shortness of breath, cachectic shock, failure to thrive, anorexia, significant weight loss, was last admitted at [facility], approximately 2 weeks ago, and was supposed to be on hospice. She refused hospice care, has difficulty of caring for herself, she was hypotensive when seen in the emergency room, she also has a left dialysis catheter femoral area for which she wants it removed. She thinks that this might giving her problems, when inspected, there is some redness surrounding the area, there is no surgical dressing in place, and there is some yellowish green discharge from the circumference of the catheter area. She was tachycardic on admission, and hypotensive, systolic in the 80s, Emergency room, potassium was 7.2, creatinine was 8.35, alkaline phosphatase 233, WBC count 20.4, lactic acid is elevated, coronavirus PCR negative. Patient was evaluated by myself also after admission to the emergency room, and discussed the hospice option, eyes she does have critical hyperkalemia, with significant hypotension. We've started her on ranitidine, and given her some fluid boluses, there is also ascites noted on examination. X-rays shows no acute disease, has COPD changes, no overt failure EKG, sinus tachycardia 111, nonspecific ST-T wave changes, no peak T waves I discussed this with Dr. mc for the left femoral catheter, for the dialysis, consult with Dr. Rodrigez, patient will be started on cefepime renal dose, vancomycin, consult with Dr. Mc, however his flying to [place] in the morning. He recommends getting Dr. Moore in [place] first, prior to discontinuing this catheter, for access to dialysis for the critical hyperkalemia blood cultures done, 12/23: I have been updated by the nursing staff from the emergency room ye sterday, Dr. Villalpando has seen the patient, patient refused dialysis, and once to have the dialysis catheter removed, patient also now agreed to hospice consultation, morphine was started for pain control, we have updated the family, however the mother cannot be contacted as she is also on hospice, and not doing too well, and we have contacted the sister, for which we have updated her, and hospice is desired also by the sister and another brother. 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, did not respond to Kayexalate treatment, patient's receiving cefepime and vancomycin, based on these hospice recommendation, we will discontinue IV antibiotics and withdraw aggressive treatment, hospice is in place CODE STATUS DO NOT RESUSCITATE, patient cannot awake for any nutrition, and has been declining, with a collection severe cachexia, start on IV morphine for comfort, and scopolamine patches, 12/24, patient remains to be obtunded today, unable to provide any conversation, she would is awake, which is therapeutic, mumbling just vocalizing words without any bleeding, we have contacted family members, initially they wanted her to be in hospice, however would not want to sign for the hospice certification, no other family relatives aren't available to assist with legal and medical affairs, including the boyfriend upon phone conversation . Discussed with case management director, patient would need emergent surrogate for legal medical decision making, patient is not expected to live for the next few days, patient was made comfortable, she still has clinical septic picture as well as severe end-stage kidney failure not candidate for long-term dialysis, we would resume cefepime, until legal determination for her estate and physical body. 01/02 patient is more alert today, was able to get some conversation with her, I have updated her with her current clinical situation and had asked whether to pursue any treatment further, patient when questioned, does not want any more antibiotics, she doesn't want any more dialysis, she wants to be made more comfortable, she doesn't want any more blood work, she wants to have her final rest, and be among angels. She still cannot eat, cannot swallow pills, very malnourished, very poor endurance, and very little life reserve, significant homestenosis Review of Systems Constitutional: Reports as per HPI, Reports anorexia, Reports fatigue, Reports malaise, Reports poor appetite, Reports weakness, Reports weight loss Ears, nose, mouth and throat: Reports as per HPI, Denies ant. neck pain, Denies bleeding gums, Denies dental pain, Denies dysphagia, Denies epistaxis, Denies headache, Denies hoarseness, Denies mouth pain, Denies nasal congestion, Denies nasal discharge, Denies neck fullness/pressure, Denies neck lump, Denies nose pain, Denies odynophagia, Denies post-nasal drip, Denies sinus pain, Denies sinus pressure, Denies swelling in mouth, Denies swelling in throat, Denies sore throat, Denies vertigo, Denies voice changes Cardiovascular: Reports as per HPI, Reports decreased exercise tolerance, Reports dyspnea on exertion, Reports edema, Reports leg edema, Reports lightheadedness, Reports orthopnea, Reports shortness of breath, Denies chest pain, Denies claudication, Denies irregular heart beat, Denies palpitations, Denies syncope Respiratory: Reports as per HPI, Reports dyspnea, Denies congestion, Denies cough, Denies cough with sputum, Denies excessive sputum, Denies hemoptysis, Denies home oxygen, Denies pain, Denies pain on inspiration, Denies pleurisy, Denies respiratory infections, Denies sleep apnea, Denies snoring, Denies wheezing Gastrointestinal: Reports as per HPI, Reports abdominal pain, Reports early satiety, Reports indigestion, Reports loss of appetite Genitourinary: Reports as per HPI Menstruation: Reports as per HPI Musculoskeletal: Reports as per HPI, Denies arm numbness/tingling, Denies atrophy, Denies fractures, Denies frequent falls, Denies gait dysfunction, Denies hot joints, Denies leg numbness/tingling, Denies limitation of motion, Denies loss of height, Denies low back pain, Denies morning stiffness, Denies muscle cramps, Denies muscle weakness, Denies myalgias, Denies neck pain, Denies neck stiffness, Denies prior amputations, Denies redness of joints, Denies shooting arm pain, Denies shooting leg pain Integumentary: Reports as per HPI Neurological: Reports as per HPI, Reports confusion, Reports gait dysfunction, Reports memory loss, Reports weakness Psychiatric: Reports as per HPI Endocrine: Reports as per HPI, Denies cold intolerance, Denies deepening of the voice, Denies excessive sweating, Denies excessive thirst, Denies fatigue, Denies flushing, Denies heat intolerance, Denies high blood sugars, Denies increase in ring/shoe/hat size, Denies low blood sugars, Denies nocturia, Denies palpitations, Denies polydipsia, Denies polyphagia, Denies polyuria, Denies proptosis, Denies recent glucocorticoid use, Denies thyroid mass, Denies weight change Hematologic/Lymphatic: Reports as per HPI Allergic/Immunologic: Reports as per HPI, Denies allergic rhinitis, Denies anaphylaxis, Denies angioedema, Denies gluten intolerance, Denies persistent infections, Denies seasonal allergies, Denies urticaria, Denies wheezing Objective - Vital Signs Vital signs: Vital Signs Temp 97.8 F 12/25/20 11:35 Pulse 95 12/25/20 11:35 Resp 16 12/25/20 11:35 BP 98/62 12/25/20 11:35 Pulse Ox 92 L 12/25/20 11:35 Intake & Output 12/24/20 12/25/20 12/25/20 18:59 06:59 18:59 Intake Total 160 170 Output Total 0 Balance 160 170 Intake: Intake, IV Titration 160 170 Amount Cefepime 1 gm In Sodium 50 Chloride 0.9% 50 ml @ 12. 5 mls/hr IVPB Q24H NANCY Rx #:[id number] Cefepime 2 gm In Sodium 100 Chloride 0.9% 100 ml @ 25 mls/hr IVPB Q8HR NANCY Rx# :[id number] Dextrose 5% in Water 1, 120 000 ml @ 100 mls/hr IV . [id number] NANCY with Sodium Bicarb (1 Meq/ml) 150 ml Rx#:[id number] Sodium Chloride 0.9% 1, 60 000 ml @ 80 mls/hr IV . [id number] NANCY Rx#:[id number] Oral 0 Tube Feeding 0 Blood Product 0 Other 0 Output: Emesis 0 Other: Voiding Method Diaper Diaper Incontinent Incontinent # Voids 0 1 # Bowel Movements 0 - Labs CBC & Chem 7: 12/23/20 06:01 12/23/20 06:01 Assessment and Plan Plan: 1. Severe Critical illness related to end-stage renal failure with hyperkalemia, hypotension, cachexia, severe malnutrition, end-stage liver diseas e, who is the best perfect candidate for hospice, , patient comes in with hypotension, hyperkalemia, and purulent drainage from the left femoral dialysis catheter, patient is started on cefepime, 1 g every 12 hours renal dose, vancomycin, 1 g bolus with pharmacy to dose, cancel consult Dr. Moore, infectious disease, blood cultures. Femoral dialysis catheter was discontinued vascular surgeon Dr. Murray discontinued IV antibiotics, discontinued IV cortisol, no dialysis desired by patient 2. Severe malnutrition, protein calorie with severe hypo-glycemia glucose was 36 on entry, D5 was started, has anorexia, patient refuses any orexigenic agents, we will discuss this further 3. Suspected adrenal insufficiency, possible adrenal crisis, however there is no hyponatremia, and patient has hypernatremia, and no eosinophilia started on hydrocortisone 100 mg IV. Every 8 hours, ranitidine 4. Hypotension without abnormal dysfunction, start with a [id number] mg 3 times a day unable to swallow, IV hydrocortisone, 100 mg every 8 hours was started,, has underlying component of dehydration, and acute kidney failure, 5 Acute kidney failure, with CK D stage V, HEENT hemodialysis is not stable at this time and feasible at this time secondary to severe hypotension, Dr. Villalpando was consulted. 5 Hyperkalemia, Kayexalate provided, IV hydration 6 Sepsis with SIRS, multifactorial, cefepime, and vancomycin, blood cultures, consult infectious disease 7 Severe anemia, most likely iron deficiency, need to investigate whether the our onto the underlying GI losses, need Hemoccult stools, 8 Ascites, most likely secondary to liver disease, however there is an ovarian mass with cystic component, C1 25 are was ordered 9 Anasarca, with ascites, most likely secondary to protein malnutrition, as well as other factors of nutrition, and disease processes unable to diurese secondary to hypotension 10 comfort care per pt wishes for advanced discontinued IV antibiotics discontinued IV cortisol continue morphine, scopolamine patch, 11 CODE STATUS DO NOT RESUSCITATE 12 prophylaxis DVT prophylaxis 13 Homeostenosis prognosis very poor, decompensation expected, unavoidable from end stage kidney failure from identity could do much for her, except to make her comfortable and respect to her dignity and wishes Prognosis severely guarded, life expectancy is very limited, to less than few days Hospice care, per family recommendations, next of Kin is sister and brother, for which they have been contacted, patient had agreed to hospice care initially she refuses any dialysis, mother is unable to be contacted secondary to end of life illness, mother is also at hospice care this time. We'll discontinue an aggressive treatment, comfort care measures only, IV morphine, and scopolamine patch, withdrawal treatment to include vancomycin, and cefepime sepsis with septic shock, end-stage renal disease, severe hyperkalemia, severe protein calorie nutrition, as comorbid condition leading to imminent threat of life, Deathis unavoidable. Hospice , with [facility], for discharge will need emergent legal guardian as the next of kin brother and sister now does not want any legal action to assist the critical ill sibling. Should there be no money for cremation, I discussed this with home health care social worker, that body bequeathing for medical science might be a viable option.
[2020-12-26] MEDS: MORPHINE SULFATE 2 MG/ML SYRINGE IVP PRN ×2 (01:05→07:26)
[2020-12-26] MEDS: SODIUM CHLORIDE 0.9% 1,000 ML IV SCH (04:22)
[2020-12-26] MEDS: DEXTROSE 5% IN WATER 1,000 ML with SODIUM BICARB (1 MEQ/ML) 150 ML IV SCH (04:23)
[2020-12-26] MEDS ORDERED: MORPHINE ORAL SOLN 10 MG/5 ML CUP PO PRN (11:53)
--- NOTE | 2020-12-26 12:10 | P.DS ---
Providers Date of admission: 12/22/20 12:54 Expected date of discharge: 12/29/20 Attending physician: Faustina Tsai Consults: 12/22/20 13:20 Consult Physician Urgent Consulting Provider: Corazon Villalpando Consult Reason/Comments: Renal failure Do you want consulting provider notified?: Yes Primary care physician: Evgeny Agosto [facility] Course: This is a 60-year-old pleasant lady, with multiple significant comorbidities including end-stage renal and liver disease, requiring hemodialysis, ascites with cirrhosis abdominal pain, shortness of breath, cachectic shock, failure to thrive, anorexia, significant weight loss, was last admitted at [facility], approximately 2 weeks ago, and was supposed to be on hospice. She refused hospice care, has difficulty of caring for herself, she was hypotensive when seen in the emergency room, she also has a left dialysis catheter femoral area for which she wants it removed. She thinks that this might giving her problems, when inspected, there is some redness surrounding the area, there is no surgical dressing in place, and there is some yellowish green discharge from the circumference of the catheter area. She was tachycardic on admission, and hypotensive, systolic in the 80s, Emergency room, potassium was 7.2, creatinine was 8.35, alkaline phosphatase 233, WBC count 20.4, lactic acid is elevated, coronavirus PCR negative. Patient was evaluated by myself also after admission to the emergency room, and discussed the hospice option, eyes she does have critical hyperkalemia, with significant hypotension. We've started her on ranitidine, and given her some fluid boluses, there is also ascites noted on examination. X-rays shows no acute disease, has COPD changes, no overt failure EKG, sinus tachycardia 111, nonspecific ST-T wave changes, no peak T waves I discussed this with Dr. mc for the left femoral catheter, for the dialysis, consult with Dr. Rodrigez, patient will be started on cefepime renal dose, vancomycin, consult with Dr. Mc, however his flying to [place] in the morning. He recommends getting Dr. Moore involved first, prior to discontinuing this catheter, for access to dialysis for the critical hyperkalemia blood cultures done, 12/23: I have been updated by the nursing staff from the emergency room yesterday, Dr. Villalpando has seen the patient, patient refused dialysis, and once to have the dialysis catheter removed, patient also now agreed to hospice consultation, morphine was started for pain control, we have updated the family, however the mother cannot be contacted as she is also on hospice, and not doing too well, and we have contacted the sister, for which we have updated her, and hospice is desired also by the sister and another brother. 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, did not respond to Kayexalate treatment, patient's receiving cefepime and vancomycin, based on these hospice recommendation, we will discontinue IV antibiotics and withdraw aggressive treatment, hospice is in place CODE STATUS DO NOT RESUSCITATE, patient cannot awake for any nutrition, and has been declining, with a collection severe cachexia, start on IV morphine for comfort, and scopolamine patches, 12/24, patient remains to be obtunded today, unable to provide any conversation, she would is awake, which is therapeutic, mumbling just vocalizing words without any bleeding, we have contacted family members, initially they wanted her to be in hospice, however would not want to sign for the hospice certification, no other family relatives aren't available to assist with legal and medical affairs, including the boyfriend upon phone conversation . Discussed with case coordinator, patient would need emergent surrogate for legal medical decision making, patient is not expected to live for the next few days, patient was made comfortable, she still has clinical septic picture as well as severe end-stage kidney failure not candidate for long-term dialysis, we would resume cefepime, until legal determination for her estate and physical body. 12/25 patient is more alert today, was able to get some conversation with her, I have updated her with her current clinical situation and had asked whether to pursue any treatment further, patient when questioned, does not want any more antibiotics, she doesn't want any more dialysis, she wants to be made more comfortable, she doesn't want any more blood work, she wants to have her final rest, and be among angels. She still cannot eat, cannot swallow pills, very malnourished, very poor endurance, and very little life reserve, significant homestenosis. 12/26: Patient has been accepted at [facility] but a public guardian is being sought as there are no family members who will sign for her to open into hospice care. Patient is not alert or oriented enough to communicate her needs or gallop per permission for treatment. She is on comfort care only at this point and is no CODE STATUS. Social work is following closely to make arrangements for an emergency guardian which has been petitioned. Patient will be discharged to [facility] once arrangements are completed. 12/27: Patient is resting in bed and appears to be comfortable. She has been afebrile, heart rate 92, blood pressure 107/76 and pulse ox 100% on room air. We're currently waiting for emergent guardianship hearing which is scheduled for morning. Social work is following closely. Once public guardian is obtained, patient will be transferred to [facility]. 12/28: Patient has been afebrile, heart rate 94, respiratory rate 8, blood pressure 99/67, pulse ox 89% on room air. Murray catheter has been placed for comfort. Social work is working on guardianship and patient's significant other, Alexx, would like to be legal guardian. Once guardianship issue is resolved, patient will be transferred to the [facility] 12/29: Patient continues to decline. Social work is involved in guardianship hearing today and once this is resolved and papers can be signed to start hospice, patient will be transferred to the [facility]. DISCHARGE DIAGNOSES 1. Severe Critical illness related to end-stage renal failure with hyperkalemia, hypotension, cachexia, severe malnutrition, end-stage liver disease. 2. Severe protein calorie malnutrition with severe hypoglycemia. 3. Suspected adrenal insufficiency, possible adrenal crisis. 4. Hypotension. 5. Acute kidney failure, with CKD stage V. 6. Hyperkalemia secondary to acute kidney injury. 7. Sepsis with possible staph aureus bacteremia. 8. Severe anemia of chronic disease 9. Ascites, most likely secondary to liver disease, however there is an ovarian mass with cystic component. 10. 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 Metabolic encephalopathy secondary to end of life. DISCHARGE PLAN [facility] Impression and plan of care have been directed as dictated by the signing physician. Candy Gregory nurse practitioner acting as scribe for signing physician. Patient Condition at Discharge: Poor Plan - Discharge Summary Discharge Rx Participant: No New Discharge Prescriptions: New Scopolamine 1.5MG/72Hr Patch [TransDerm Scop] 1 patch TRANSDERM Q72H patch Discontinued Pantoprazole [Protonix] 40 mg PO DAILY Magnesium Gluconate [Magonate] 500 mg PO DAILY Cholecalciferol [Vitamin D3 (25 Mcg = 1000 Iu)] 25 mcg PO DAILY Midodrine HCl [ProAmatine] 10 mg PO TID Loperamide HCl [Loperamide] 2 mg PO QID HYDROcodone/APAP 7.5-325MG [[place] 7.5-325] 1 tab PO TID Folic Acid 1 mg PO DAILY Anastrozole 1 mg PO DAILY Potassium Chloride 10 meq PO BID Cyanocobalamin (Vitamin B-12) [Vitamin B-12] 1,000 mcg PO DAILY Aspirin 325 mg PO DAILY Ascorbic Acid [Vitamin C with Diana Hips] 1,000 mg PO DAILY Discharge Medication List Scopolamine 1.5MG/72Hr Patch [TransDerm Scop] 1 patch TRANSDERM Q72H patch 12/26/20 [Rx] Follow up Appointment(s)/Referral(s): Evgeny Beach MD [Primary Care Provider] - As Needed (There is no answer at the office please call and make follow up appointment.) Discharge Disposition: DISCH TO HOSPICE MED FACILTY
[2020-12-26] MEDS: MORPHINE CONC SOLN 10mg/0.5mL ORAL SYRG SL SCH ×4 (13:12→23:34)
[2020-12-26] MEDS: SCOPOLAMINE 1.5MG/72HR PATCH TRANSDERM SCH (19:45)
[2020-12-27] MEDS: MORPHINE CONC SOLN 10mg/0.5mL ORAL SYRG SL SCH ×7 (03:38→23:29)
--- NOTE | 2020-12-27 14:03 | P.PN ---
Subjective Progress Note Date: 12/26/20 HISTORY OF PRESENT ILLNESS This is a 60-year-old pleasant lady, with multiple significant comorbidities i ncluding end-stage renal and liver disease, requiring hemodialysis, ascites with cirrhosis abdominal pain, shortness of breath, cachectic shock, failure to thrive, anorexia, significant weight loss, was last admitted at [facility], approximately 2 weeks ago, and was supposed to be on hospice. She refused hospice care, has difficulty of caring for herself, she was hypotensive when seen in the emergency room, she also has a left dialysis catheter femoral area for which she wants it removed. She thinks that this might giving her problems, when inspected, there is some redness surrounding the area, there is no surgical dressing in place, and there is some yellowish green discharge from the circumference of the catheter area. She was tachycardic on admission, and hypotensive, systolic in the 80s, Emergency room, potassium was 7.2, creatinine was 8.35, alkaline phosphatase 233, WBC count 20.4, lactic acid is elevated, coronavirus PCR negative. Patient was evaluated by myself also after admission to the emergency room, and discussed the hospice option, eyes she does have critical hyperkalemia, with significant hypotension. We've started her on ranitidine, and given her some fluid boluses, there is also ascites noted on examination. X-rays shows no acute disease, has COPD changes, no overt failure EKG, sinus tachycardia 111, nonspecific ST-T wave changes, no peak T waves I discussed this with Dr. mc for the left femoral catheter, for the dialysis, consult with Dr. Rodrigez, patient will be started on cefepime renal dose, vancomycin, consult with Dr. Mc, however his flying to [place] in the morning. He recommends getting Dr. Moore involved first, prior to discontinuing this catheter, for access to dialysis for the critical hyperkalemia blood cultures done, 12/23: I have been updated by the nursing staff from the emergency room yesterday, Dr. Villalpando has seen the patient, patient refused dialysis, and once to have the dialysis catheter removed, patient also now agreed to hospice consultation, morphine was started for pain control, we have updated the family, however the mother cannot be contacted as she is also on hospice, and not doing too well, and we have contacted the sister, for which we have updated her, and hospice is desired also by the sister and another brother. 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, did not respond to Kayexalate treatment, patient's receiving cefepime and vancomycin, based on these hospice recommendation, we will discontinue IV antibiotics and withdraw aggressive treatment, hospice is in place CODE STATUS DO NOT RESUSCITATE, patient cannot awake for any nutrition, and has been declining, with a collection severe cachexia, start on IV morphine for comfort, and scopolamine patches, 12/24, patient remains to be obtunded today, unable to provide any conversation, she would is awake, which is therapeutic, mumbling just vocalizing words without any bleeding, we have contacted family members, initially they wanted her to be in hospice, however would not want to sign for the hospice certification, no other family relatives aren't available to assist with legal and medical affairs, including the boyfriend upon phone conversation . Discussed with showcase trimmer, patient would need emergent surrogate for legal medical decision making, patient is not expected to live for the next few days, patient was made comfortable, she still has clinical septic picture as well as severe end-stage kidney failure not candidate for long-term dialysis, we would resume cefepime, until legal determination for her estate and physical body. 12/25 patient is more alert today, was able to get some conversation with her, I have updated her with her current clinical situation and had asked whether to pursue any treatment further, patient when questioned, does not want any more antibiotics, she doesn't want any more dialysis, she wants to be made more comfortable, she doesn't want any more blood work, she wants to have her final rest, and be among angels. She still cannot eat, cannot swallow pills, very malnourished, very poor endurance, and very little life reserve, significant homestenosis. 12/26: Patient has been accepted at [facility] but a public guardian is being sought as there are no family members who will sign for her to open into hospice care. Patient is not alert or oriented enough to communicate her needs or give per permission for treatment. She is on comfort care only at this point and is no CODE STATUS. Social work is following closely to make arrangements for an emergency guardian which has been petitioned. Patient will be discharged to [facility] once arrangements are completed. REVIEW OF SYSTEMS Unable to obtain due to patient's mental status PHYSICAL EXAMINATION Gen: This is a very thin cachectic female patient. Patient is resting in bed appears to be in no acute respiratory distress. HEENT: Head is atraumatic, normocephalic. Pupils equal, round. Sclerae is anicteric. Oral mucous membranes are dry. NECK: Trachea midline LUNGS: Diminished and Clear to auscultation. No wheezes or rhonchi. No intercostal retractions. HEART: Regular rate and rhythm. No murmur. ABDOMEN: Soft. Bowel sounds are present. No masses. No tenderness. EXTREMITIES: No pedal edema. NEUROLOGICAL: Patient is awake, alert and oriented to person. ASSESSMENT AND PLAN 1. Severe Critical illness related to end-stage renal failure with hyperkalemia, hypotension, cachexia, severe malnutrition, end-stage liver disease. 2. Severe protein calorie malnutrition with severe hypoglycemia. 3. Suspected adrenal insufficiency, possible adrenal crisis. 4. Hypotension. 5. Acute kidney failure, with CKD stage V. 6. Hyperkalemia secondary to acute kidney injury. 7. Sepsis with possible staph aureus bacteremia. 8. Severe anemia of chronic disease 9. Ascites, most likely secondary to liver disease, however there is an ovarian mass with cystic component. 10. 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 CODE STATUS: No code DISCHARGE PLAN [facility] Impression and plan of care have been directed as dictated by the signing physician. Candy Gregory nurse practitioner acting as scribe for signing physician. Objective - Vital Signs Vital signs: Vital Signs Temp 97.6 F 12/26/20 05:00 Pulse 66 12/26/20 05:00 Resp 16 12/26/20 05:00 BP 95/63 12/26/20 05:00 Pulse Ox 99 12/26/20 05:00 Intake & Output 12/25/20 12/26/20 12/26/20 18:59 06:59 18:59 Intake Total 600 Output Total 1 Balance 599 Intake: Intake, IV Titration 240 Amount Sodium Chloride 0.9% 1, 240 000 ml @ 80 mls/hr IV . [id number] [facility] Rx#:[id number] Oral 360 Output: Urine 1 Emesis 0 Other: Voiding Method Diaper Diaper Incontinent Incontinent # Voids 0 # Bowel Movements 0 - Labs CBC & Chem 7: 12/23/20 06:01 12/23/20 06:01
--- NOTE | 2020-12-27 14:05 | P.PN ---
Subjective Progress Note Date: 12/27/20 HISTORY OF PRESENT ILLNESS This is a 60-year-old pleasant lady, with multiple significant comorbidities i ncluding end-stage renal and liver disease, requiring hemodialysis, ascites with cirrhosis abdominal pain, shortness of breath, cachectic shock, failure to thrive, anorexia, significant weight loss, was last admitted at [facility], approximately 2 weeks ago, and was supposed to be on hospice. She refused hospice care, has difficulty of caring for herself, she was hypotensive when seen in the emergency room, she also has a left dialysis catheter femoral area for which she wants it removed. She thinks that this might giving her problems, when inspected, there is some redness surrounding the area, there is no surgical dressing in place, and there is some yellowish green discharge from the circumference of the catheter area. She was tachycardic on admission, and hypotensive, systolic in the 80s, Emergency room, potassium was 7.2, creatinine was 8.35, alkaline phosphatase 233, WBC count 20.4, lactic acid is elevated, coronavirus PCR negative. Patient was evaluated by myself also after admission to the emergency room, and discussed the hospice option, eyes she does have critical hyperkalemia, with significant hypotension. We've started her on ranitidine, and given her some fluid boluses, there is also ascites noted on examination. X-rays shows no acute disease, has COPD changes, no overt failure EKG, sinus tachycardia 111, nonspecific ST-T wave changes, no peak T waves I discussed this with Dr. mc for the left femoral catheter, for the dialysis, consult with Dr. Rodrigez, patient will be started on cefepime renal dose, vancomycin, consult with Dr. Mc, however his flying to [place] in the morning. He recommends getting Dr. Moore involved first, prior to discontinuing this catheter, for access to dialysis for the critical hyperkalemia blood cultures done, 12/23: I have been updated by the nursing staff from the emergency room yesterday, Dr. Villalpando has seen the patient, patient refused dialysis, and once to have the dialysis catheter removed, patient also now agreed to hospice consultation, morphine was started for pain control, we have updated the family, however the mother cannot be contacted as she is also on hospice, and not doing too well, and we have contacted the sister, for which we have updated her, and hospice is desired also by the sister and another brother. 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, did not respond to Kayexalate treatment, patient's receiving cefepime and vancomycin, based on these hospice recommendation, we will discontinue IV antibiotics and withdraw aggressive treatment, hospice is in place CODE STATUS DO NOT RESUSCITATE, patient cannot awake for any nutrition, and has been declining, with a collection severe cachexia, start on IV morphine for comfort, and scopolamine patches, 12/24, patient remains to be obtunded today, unable to provide any conversation, she would is awake, which is therapeutic, mumbling just vocalizing words without any bleeding, we have contacted family members, initially they wanted her to be in hospice, however would not want to sign for the hospice certification, no other family relatives aren't available to assist with legal and medical affairs, including the boyfriend upon phone conversation . Discussed with window caser, patient would need emergent surrogate for legal medical decision making, patient is not expected to live for the next few days, patient was made comfortable, she still has clinical septic picture as well as severe end-stage kidney failure not candidate for long-term dialysis, we would resume cefepime, until legal determination for her estate and physical body. 12/25 patient is more alert today, was able to get some conversation with her, I have updated her with her current clinical situation and had asked whether to pursue any treatment further, patient when questioned, does not want any more antibiotics, she doesn't want any more dialysis, she wants to be made more comfortable, she doesn't want any more blood work, she wants to have her final rest, and be among angels. She still cannot eat, cannot swallow pills, very malnourished, very poor endurance, and very little life reserve, significant homestenosis. 12/26: Patient has been accepted at [facility] but a public guardian is being sought as there are no family members who will sign for her to open into hospice care. Patient is not alert or oriented enough to communicate her needs or give per permission for treatment. She is on comfort care only at this point and is no CODE STATUS. Social work is following closely to make arrangements for an emergency guardian which has been petitioned. Patient will be discharged to [facility] once arrangements are completed. 12/27: Patient is resting in bed and appears to be comfortable. She has been afebrile, heart rate 92, blood pressure 107/76 and pulse ox 100% on room air. We're currently waiting for emergent guardianship hearing which is scheduled for morning. Social work is following closely. Once public guardian is obtained, patient will be transferred to [facility]. REVIEW OF SYSTEMS Unable to obtain due to patient's mental status PHYSICAL EXAMINATION Gen: This is a very thin cachectic female patient. Patient is resting in bed appears to be in no acute respiratory distress. HEENT: Head is atraumatic, normocephalic. Pupils equal, round. Sclerae is anicteric. Oral mucous membranes are dry. NECK: Trachea midline LUNGS: Diminished. No intercostal retractions. HEART: Regular rate and rhythm. No murmur. ABDOMEN: Soft. Bowel sounds are present. No masses. No tenderness. EXTREMITIES: No pedal edema. NEUROLOGICAL: Patient is awake, alert and oriented to person. ASSESSMENT AND PLAN 1. Severe Critical illness related to end-stage renal failure with hyperkalemi a, hypotension, cachexia, severe malnutrition, end-stage liver disease. 2. Severe protein calorie malnutrition with severe hypoglycemia. 3. Suspected adrenal insufficiency, possible adrenal crisis. 4. Hypotension. 5. Acute kidney failure, with CKD stage V. 6. Hyperkalemia secondary to acute kidney injury. 7. Sepsis with possible staph aureus bacteremia. 8. Severe anemia of chronic disease 9. Ascites, most likely secondary to liver disease, however there is an ovarian mass with cystic component. 10. 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 CODE STATUS: No code DISCHARGE PLAN [facility] Impression and plan of care have been directed as dictated by the signing physician. Candy Gregory nurse practitioner acting as scribe for signing physician. Objective - Vital Signs Vital signs: Vital Signs Temp 97.5 F L 12/27/20 05:00 Pulse 92 12/27/20 05:00 Resp 20 12/27/20 05:00 BP 107/76 12/27/20 05:00 Pulse Ox 100 12/27/20 05:00 Intake & Output 12/26/20 12/27/20 12/27/20 18:59 06:59 18:59 Intake Total 50 Output Total 1 Balance -1 50 Intake: Oral 50 Output: Urine 1 Other: Voiding Method Diaper Diaper Incontinent Incontinent # Voids 0 0 # Bowel Movements 0 - Labs CBC & Chem 7: 12/23/20 06:01 12/23/20 06:01 Labs: Microbiology - Last 24 Hours (Table) 12/22/20 18:14 Blood Culture - Preliminary Blood 12/22/20 18:14 Blood Culture Gram Stain - Final Blood Blood Culture - Final Methicillin resist S. aureus
[2020-12-28] MEDS: MORPHINE CONC SOLN 10mg/0.5mL ORAL SYRG SL SCH ×5 (04:27→20:46)
[2020-12-28 11:30] VITALS: BP 102/56; PULSE 74; TEMP 96.1
--- NOTE | 2020-12-28 13:17 | P.PN ---
Subjective Progress Note Date: 12/28/20 HISTORY OF PRESENT ILLNESS This is a 60-year-old pleasant lady, with multiple significant comorbidities i ncluding end-stage renal and liver disease, requiring hemodialysis, ascites with cirrhosis abdominal pain, shortness of breath, cachectic shock, failure to thrive, anorexia, significant weight loss, was last admitted at [facility], approximately 2 weeks ago, and was supposed to be on hospice. She refused hospice care, has difficulty of caring for herself, she was hypotensive when seen in the emergency room, she also has a left dialysis catheter femoral area for which she wants it removed. She thinks that this might giving her problems, when inspected, there is some redness surrounding the area, there is no surgical dressing in place, and there is some yellowish green discharge from the circumference of the catheter area. She was tachycardic on admission, and hypotensive, systolic in the 80s, Emergency room, potassium was 7.2, creatinine was 8.35, alkaline phosphatase 233, WBC count 20.4, lactic acid is elevated, coronavirus PCR negative. Patient was evaluated by myself also after admission to the emergency room, and discussed the hospice option, eyes she does have critical hyperkalemia, with significant hypotension. We've started her on ranitidine, and given her some fluid boluses, there is also ascites noted on examination. X-rays shows no acute disease, has COPD changes, no overt failure EKG, sinus tachycardia 111, nonspecific ST-T wave changes, no peak T waves I discussed this with Dr. mc for the left femoral catheter, for the dialysis, consult with Dr. Rodrigez, patient will be started on cefepime renal dose, vancomycin, consult with Dr. Mc, however his flying to [place] in the morning. He recommends getting Dr. Moore involved first, prior to discontinuing this catheter, for access to dialysis for the critical hyperkalemia blood cultures done, 12/23: I have been updated by the nursing staff from the emergency room yesterday, Dr. Villalpando has seen the patient, patient refused dialysis, and once to have the dialysis catheter removed, patient also now agreed to hospice consultation, morphine was started for pain control, we have updated the family, however the mother cannot be contacted as she is also on hospice, and not doing too well, and we have contacted the sister, for which we have updated her, and hospice is desired also by the sister and another brother. 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, did not respond to Kayexalate treatment, patient's receiving cefepime and vancomycin, based on these hospice recommendation, we will discontinue IV antibiotics and withdraw aggressive treatment, hospice is in place CODE STATUS DO NOT RESUSCITATE, patient cannot awake for any nutrition, and has been declining, with a collection severe cachexia, start on IV morphine for comfort, and scopolamine patches, 12/24, patient remains to be obtunded today, unable to provide any conversation, she would is awake, which is therapeutic, mumbling just vocalizing words without any bleeding, we have contacted family members, initially they wanted her to be in hospice, however would not want to sign for the hospice certification, no other family relatives aren't available to assist with legal and medical affairs, including the boyfriend upon phone conversation . Discussed with pillowcase sewer, patient would need emergent surrogate for legal medical decision making, patient is not expected to live for the next few days, patient was made comfortable, she still has clinical septic picture as well as severe end-stage kidney failure not candidate for long-term dialysis, we would resume cefepime, until legal determination for her estate and physical body. 12/25 patient is more alert today, was able to get some conversation with her, I have updated her with her current clinical situation and had asked whether to pursue any treatment further, patient when questioned, does not want any more antibiotics, she doesn't want any more dialysis, she wants to be made more comfortable, she doesn't want any more blood work, she wants to have her final rest, and be among angels. She still cannot eat, cannot swallow pills, very malnourished, very poor endurance, and very little life reserve, significant homestenosis. 12/26: Patient has been accepted at [facility] but a public guardian is being sought as there are no family members who will sign for her to open into hospice care. Patient is not alert or oriented enough to communicate her needs or give per permission for treatment. She is on comfort care only at this point and is no CODE STATUS. Social work is following closely to make arrangements for an emergency guardian which has been petitioned. Patient will be discharged to [facility] once arrangements are completed. 12/27: Patient is resting in bed and appears to be comfortable. She has been afebrile, heart rate 92, blood pressure 107/76 and pulse ox 100% on room air. We're currently waiting for emergent guardianship hearing which is scheduled for morning. Social work is following closely. Once public guardian is obtained, patient will be transferred to [facility]. 12/28: Patient has been afebrile, heart rate 94, respiratory rate 8, blood pressure 99/67, pulse ox 89% on room air. Murray catheter has been placed for comfort. Social work is working on guardianship and patient's significant other, Alexx, would like to be legal guardian. Once guardianship issue is resolved, patient will be transferred to the [facility]. REVIEW OF SYSTEMS Unable to obtain due to patient's mental status PHYSICAL EXAMINATION Gen: This is a very thin cachectic female patient. Patient is resting in bed appears to be in no acute respiratory distress. HEENT: Head is atraumatic, normocephalic. NECK: Trachea midline LUNGS: No intercostal retractions. ABDOMEN: Murray catheter in place. NEUROLOGICAL: Patient is sleeping. ASSESSMENT AND PLAN 1. Severe Critical illness related to end-stage renal failure with hyperkalemia, hypotension, cachexia, severe protein calorie malnutrition, end- stage liver disease. 2. Severe protein calorie malnutrition with severe hypoglycemia. 3. Suspected adrenal insufficiency, possible adrenal crisis. 4. Hypotension. 5. Acute kidney failure, with CKD stage V. 6. Hyperkalemia secondary to acute kidney injury. 7. Sepsis with possible staph aureus bacteremia. 8. Severe anemia of chronic disease 9. Ascites, most likely secondary to liver disease, however there is an ovarian mass with cystic component. 10. Anasarca, with ascites, most likely secondary to protein calorie malnutrition 11. Homeostenosis 12. Metabolic encephalopathy secondary to end of life. Continue comfort care only until patient can be moved to hospice care. CODE STATUS: No code DISCHARGE PLAN [facility] Impression and plan of care have been directed as dictated by the signing physician. Candy Gregory nurse practitioner acting as scribe for signing physician. Objective - Vital Signs Vital signs: Vital Signs Temp 97.3 F L 12/28/20 04:55 Pulse 94 12/28/20 04:55 Resp 8 L 12/28/20 04:55 BP 99/67 12/28/20 04:55 Pulse Ox 89 L 12/28/20 04:55 Intake & Output 12/27/20 12/28/20 12/28/20 18:59 06:59 18:59 Intake Total 160 Output Total 999 Balance -839 Intake: IV 160 ns@20 160 Output: Post Void Residual 999 Other: Voiding Method Diaper Diaper Incontinent Incontinent # Voids 0 - Labs CBC & Chem 7: 12/23/20 06:01 12/23/20 06:01
[2020-12-29 01:18] VITALS: RESP 6
[2020-12-29] MEDS: MORPHINE CONC SOLN 10mg/0.5mL ORAL SYRG SL SCH ×5 (03:48→16:29)
== END 2020-12-29 18:17 | disposition hospice, inpatient (51) | DRG 871 ==
LOC: EC 10:40 → EEVIPCON 12:54 → 3SCARD 12:54 → 5NMEDONC 15:49
PROVIDERS: ADMIT Family Medicine; ATTEND Family Medicine
PROC: 06PY3YZ Removal of Other Device from Lower Vein, Percutaneous Approach (ICD-10-PCS; principal; 2020-12-23)
DX: A41.01 Sepsis due to Methicillin susceptible Staphylococcus aureus (principal); N18.6 End stage renal disease; E43 Unspecified severe protein-calorie malnutrition; G93.41 Metabolic encephalopathy; K76.7 Hepatorenal syndrome; N17.0 Acute kidney failure with tubular necrosis; I12.0 Hypertensive chronic kidney disease with stage 5 chronic kidney disease or end stage renal disease; Z68.1 Body mass index [BMI] 19.9 or less, adult; E87.2 Acidosis; R18.8 Other ascites; R64 Cachexia; R65.20 Severe sepsis without septic shock; D50.9 Iron deficiency anemia, unspecified; F17.210 Nicotine dependence, cigarettes, uncomplicated; D63.1 Anemia in chronic kidney disease; Z99.2 Dependence on renal dialysis; Z91.15 Patient's noncompliance with renal dialysis; E16.2 Hypoglycemia, unspecified; Z20.822 Contact with and (suspected) exposure to COVID-19; Z66 Do not resuscitate; Z51.5 Encounter for palliative care; E27.8 Other specified disorders of adrenal gland; E86.9 Volume depletion, unspecified; E87.5 Hyperkalemia; F41.9 Anxiety disorder, unspecified; G40.909 Epilepsy, unspecified, not intractable, without status epilepticus; K08.109 Complete loss of teeth, unspecified cause, unspecified class; G89.29 Other chronic pain; K72.90 Hepatic failure, unspecified without coma; K74.60 Unspecified cirrhosis of liver; N83.9 Noninflammatory disorder of ovary, fallopian tube and broad ligament, unspecified; R62.7 Adult failure to thrive; Z79.811 Long term (current) use of aromatase inhibitors; Z79.82 Long term (current) use of aspirin; Z79.899 Other long term (current) drug therapy; Z85.3 Personal history of malignant neoplasm of breast; Z86.010 Personal history of colon polyps; Z88.8 Allergy status to other drugs, medicaments and biological substances; Z98.890 Other specified postprocedural states; Z53.29 Procedure and treatment not carried out because of patient's decision for other reasons
CPT/HCPCS: 36415; 71046; 74176; 80053; 80202; 82550; 83605; 83735; 83880; 84132; 84145; 84484; 85025; 85610; 85730; 86304; 87040; 87077; 87186; 87635; 93005; 96361; 96374; 96375; 99285